=== PATIENT | female | born 1975 | race African-American/Black ===

== ENCOUNTER 2018-11-02 20:27 | Observation (INO) ==
--- OUTSIDE RECORDS SUMMARY | 2018-11-02 20:30 | External Medical Summary | Continuity of Care Document ---
:1975 Author Name Corbin Todd, Provider Address Unavailable Unavailable , Care Team Providers Name Role Phone Fe Todd, Gabriel Christie Unavailable [email or web address] Unavailable Unavailable Unavailable Unavailable Assessments Assessed Problems:Abscess in epidural space of lumbar spineMethicillin susceptible Staphylococcus aureus infectionPostoperative infection Problems Postoperative infection (998.59) (T81.40XA) Abscess in epidural space of lumbar spine (324.1) (G06.1) Methicillin susceptible Staphylococcus aureus infection (041 .11) (A49.01) Allergies and Adverse Reactions Erythromycin Derivatives (Allergy) Medications hydroCHLOROthiazide 25 MG Oral Tablet Perez Miramontes art: 11-Nov-2014 Refills: 0 metFORMIN HCl - 500 MG Oral Tablet; Take 1 tablet twice imsti y Quantity: 60 Refills: 5 Wellbutrin TABS Refills: 0 Cefadroxil 1 GM Oral Tablet; Take 1 tablet twice daily Perez Miramontes Start: 27-Nov-2014 Quantity: 60 Refills: 5 Procedures Procedures not documented Immunizations Immunizations not documented Family History Mother No pertinent family history (V49.89) (Z78.9) Status: Active Social History - Smoking Status Current some day smoker Interventions Discussion/Summarypatient with lumbar epidural abscess following spinal surgery, with methicillin sensitive staph aureus, with excellent response to IV and now prolonged oral antibiotic therapy. At this point, feel thatpatient can complete current course of antibiotics, then can discontinue, with careful follow-up for any evidence of recurrent infection. Patient advised to call immediately if any signs or symptoms ofinfection or any other questions or concerns. Plan of Treatment Planned Observations Planned Goals not documented Results No Known Results Results not documented Encounters Appointment; Gabriel Miramontes M.D. 02-Feb-2015 16:15 Encounter Diagnosis: Problem not documented
[2018-11-02] MEDS ORDERED: METOPROLOL TARTRATE 1 MG/ML VIAL IV STA ×2 (21:39→23:01)
--- NOTE | 2018-11-02 21:42 | XRay Report ---
XR chest 1V portable CLINICAL HISTORY: 43 years-old Female presenting with Chest Pain. TECHNIQUE: Portable upright AP view of the chest was obtained. COMPARISON: 10/14/2014. FINDINGS: Evaluation limited by portable technique and body habitus. Cardiomediastinal silhouette normal. No focal opacity. No large effusion or pneumothorax. Osseous str uctures normal. Upper abdomen normal. IMPRESSION: 1. No gross evidence of acute cardiopulmonary disease. Electronically signed by: Eric Hill M.D. 11/02/2018 9:41 PM
[2018-11-02 21:45] LABS: Basophils # (auto) 0.07 K/uL (0-0.2); Basophils % (auto) 0.6 %; Eosinophils # (auto) 0.22 K/uL (0-0.5); Eosinophils % (auto) 1.9 %; Hematocrit (blood only) 33.4 % (37-47); Hemoglobin 10.7 g/dL (12.0-16.0); Immature Granulocytes # (auto) 0.03 K/uL (0.00-0.02); Immature Granulocytes % (auto) 0.3 %; Lymphocytes # (auto) 4.17 K/uL (1.2-3.4); Lymphocytes % (auto) 36.6 %; Mean Corpuscular Hemoglobin 22.4 pg (25-34); Mean Corpuscular Volume 69.9 fL (80-100); Mean Platelet Volume 9.8 fL (7.4-10.4); Monocytes # (auto) 0.89 K/uL (0.11-0.59); Monocytes % (auto) 7.8 %; Neutrophils # (auto) 6.02 K/uL (1.4-6.5); Neutrophils % (auto) 52.8 %; Nucleated RBC # (auto) 0.06 K/uL (0-0); Nucleated RBC % (auto) 0.6 %; Platelet Count 340 K/uL (130-400); RDW Coefficient of Variation 17.1 % (11.5-14.5); RDW Standard Deviation 43.2 fL (36.4-46.3); Red Blood Count 4.78 M/uL (4.2-5.4)
[2018-11-02 21:49] LABS: Partial Thromboplastin Ratio 1.1; Partial Thromboplastin Time 28.6 Seconds (21.0-31.0); Prothrombin Time 9.9 Seconds (9.0-12.0)
[2018-11-02 21:55] LABS: Alanine Aminotransferase 40 U/L (12-78); Albumin Globulin Ratio 0.9 (0.9-2); Albumin Level 3.6 gm/dl (3.4-5.0); Alkaline Phosphatase 92 U/L (45-117); Aspartate Aminotransferase 42 U/L (15-37); BUN Creatinine Ratio 11.9 (10-20); Bilirubin,Total 0.2 mg/dl (0.2-1); Blood Urea Nitrogen 9 mg/dl (7-18); Calcium 9.4 mg/dl (8.5-10.1); Carbon Dioxide 25 mmol/L (21-32); Chloride 105 mmol/L (98-107); Est GFR (African American) 109.4; Est GFR (Non-African American) 94.4; Globulin 3.9 gm/dl (2.5-4.0); Glucose 104 mg/dl (70-99); Lipase 70 U/L (73-393); Potassium 3.5 mmol/L (3.5-5.1); Sodium 138 mmol/L (136-145); Total Protein 7.5 gm/dl (6.4-8.2); Troponin I < 0.015 ng/ml (0-0.045)
[2018-11-02 22:00] LABS: D Dimer 270 ug/L FEU (0-500)
--- NOTE | 2018-11-02 22:11 | Emergency Department Note ---
History of Present Illness General Chief complaint: Chest Pain Stated complaint: CHEST PAIN, BLACKED OUT History of Present Illness Maximum Pain Intensity: 8 This 43 yo presents to the ER complaining of chest pain, dyspnea, upper back pain and arm discomfort Location: Chest Quality: Pressure Severity: Moderate Duration: One day Timing: Started yesterday Context: Symptoms persisted and patient came in Modifying factors: better with nothing; worse with nothing Patient has not been taking her blood pressure medicine. She states she forgets. She does have diabetes. Patient denies exertional chest pain, abdominal pain, leg pain or swelling, recent travel. Family history is unknown. Patient does smoke. No prior heart disease. Home Medications Home Medications Medication Instructions Recorded Confirmed Type Wellbutrin SR 150 mg PO BID 11/02/18 11/02/18 History albuterol sulfate [ProAir HFA] 2 puff INHALATION QID PRN 11/02/18 11/02/18 History losartan-hydrochlorothiazide 1 tab PO DAILY 11/02/18 11/02/18 History [Hyzaar] metformin 500 mg PO BID 11/02/18 11/02/18 History naproxen sodium [Aleve] 880 mg PO DAILY PRN 11/02/18 11/02/18 History Allergies Allergy/AdvReac Type Severity Reaction Status Date / Time erythromycin base Allergy Intermediate HIVES Verified 11/02/18 22:05 Past Med/Surg History Medical History Diabetes High blood pressure Social History Feels Safe at Home: Yes Smoking Status: Current every day smoker Review of Systems All systems reviewed & are unremarkable except as noted in HPI & below Physical Exam Vital Signs Vital Signs - 24 hr 11/02/18 20:40 11/02/18 22:56 Temperature 37.7 C H Temperature Source Oral Sepsis Recent Fever Within 48 Hours No Sepsis Action Taken by Nursing No Action Required Pulse Rate 119 H Pulse Rate [Left Finger] 92 H Respiratory Rate 18 Respiratory Effort / Characteristics Non-Labored Respiratory Depth Normal Blood Pressure 217/149 H Blood Pressure [Right Arm] 187/130 H Blood Pressure Mean 171 Blood Pressure Mean [Right Arm] 149 Pulse Oximetry 97 99 Oxygen Delivery Method Room Air Room Air VITALS: Vitals are noted on the nurse's note and reviewed by myself. Vital signs hypertensive and tachycardic. GENERAL: -[place] female, in no acute distress, nondiaphoretic, well- developed well-nourished. SKIN: The skin was without rashes, erythema, edema, or bruising. There is no tenting of the skin. Capillary reflex less than 2 seconds. HEAD: Normocephalic atraumatic. EARS: External auditory canals clear, tympanic membranes pearly manuel without erythema or effusion bilaterally. EYES: Pupils equal round and reactive to light and accommodation. Conjunctivae without injection, sclerae without icterus. Extraocular movements intact. NOSE: Patent, turbinates without inflammation or discharge. MOUTH: Mucous membranes moist. Pharynx without erythema or exudate. Uvula midline. Airway patent. Tongue does not deviate. NECK: Supple without nuchal rigidity. No lymphadenopathy. No thyromegaly. Cervical spine is nontender. No JVD. HEART: Mildly tachycardic rate and rhythm, mid chest tender to palpation reproducing symptoms LUNGS: Clear to auscultation bilaterally without wheezes, rales or rhonchi. No retractions or accessory muscle use. ABDOMEN: Positive bowel sounds x 4. Normal tympanic percussion. Soft, nontender, without masses or organomegaly. Valdez sign negative. No guarding or rebound tenderness. No CVA tenderness MUSCULOSKELETAL: No muscle atrophy, erythema, or edema noted. NEURO: Patient was alert and oriented to person place and time. Normal sensation to light and sharp touch. No focal neurological deficits. Course Administered Medications Discontinued Medications Al Hydrox/Mg Hydrox/Simethicone () 1 dose PO ONE ONE Stop: 11/02/18 23:12 Last Admin: 11/02/18 23:36 Dose: 1 dose Documented by: [id number] Ioversol (Optiray 320 125ml) 119 ml IV ONCE PRN PRN Reason: Interaction Checking Stop: 11/06/18 22:45 Last Admin: 11/02/18 22:47 Dose: 119 ml Documented by: [id number] Metoprolol Tartrate (Lopressor) 5 mg IV NOW STA Stop: 11/02/18 21:40 Last Admin: 11/02/18 22:04 Dose: 5 mg Documented by: [id number] Metoprolol Tartrate (Lopressor) 5 mg IV NOW STA Stop: 11/02/18 23:02 Last Admin: 11/02/18 23:03 Dose: 5 mg Documented by: [id number] Medical Decision Making Medical Records Attestation: I reviewed the patient's medical records. Home Medications Current Medication List: was personally reviewed by me Laboratory Data Attestation: I reviewed the patient's lab results. Result diagrams: 11/02/18 20:50 11/02/18 20:50 Lab Results 11/02/18 11/02/18 11/02/18 Range/Units 20:50 20:50 20:50 WBC 11.40 H (4.8-10.8) K/uL RBC 4.78 (4.2-5.4) M/uL Hgb 10.7 L (12.0-16.0) g/dL Hct 33.4 L (37-47) % MCV 69.9 L (80-100) fL MCH 22.4 L (25-34) pg MCHC 32.0 (32-36) g/dL RDW Std Deviation 43.2 (36.4-46.3) fL RDW Coeff of Gladys 17.1 H (11.5-14.5) % Plt Count 340 (130-400) K/uL MPV 9.8 (7.4-10.4) fL Immature Gran % (Auto) 0.3 % Neut % (Auto) 52.8 % Lymph % (Auto) 36.6 % [place] % (Auto) 7.8 % Eos % (Auto) 1.9 % Baso % (Auto) 0.6 % Immature Gran # (Auto) 0.03 H (0.00-0.02) K/uL Neut # (Auto) 6.02 (1.4-6.5) K/uL Lymph # (Auto) 4.17 H (1.2-3.4) K/uL [place] # (Auto) 0.89 H (0.11-0.59) K/uL Eos # (Auto) 0.22 (0-0.5) K/uL Baso # (Auto) 0.07 (0-0.2) K/uL Absolute Nucleated RBC 0.06 H (0-0) K/uL Nucleated RBC % (auto) 0.6 % Hypochromasia Present Microcytosis Present PT 9.9 (9.0-12.0) Seconds INR 1.0 (0.9-1.1) APTT 28.6 (21.0-31.0) Seconds PTT Ratio 1.1 D-Dimer (0-500) ug/L FEU Sodium 138 (136-145) mmol/L Potassium 3.5 (3.5-5.1) mmol/L Chloride 105 (98-107) mmol/L Carbon Dioxide 25 (21-32) mmol/L Anion Gap 9.0 (3-11) BUN 9 (7-18) mg/dl Creatinine 0.78 (0.6-1.2) mg/dl Est Cr Clr Drug Dosing 156.0 ml/min Est GFR ( Amer) 109.4 Est GFR (Non-Af Amer) 94.4 BUN/Creatinine Ratio 11.9 (10-20) Glucose 104 H (70-99) mg/dl Calcium 9.4 (8.5-10.1) mg/dl Total Bilirubin 0.2 (0.2-1) mg/dl AST 42 H (15-37) U/L ALT 40 (12-78) U/L Alkaline Phosphatase 92 (45-117) U/L Troponin I < 0.015 (0-0.045) ng/ml Total Protein 7.5 (6.4-8.2) gm/dl Albumin 3.6 (3.4-5.0) gm/dl Globulin 3.9 (2.5-4.0) gm/dl Albumin/Globulin Ratio 0.9 (0.9-2) Lipase 70 L (73-393) U/L Specimen Hemolysis Urine Color Urine Appearance (Clear) Urine pH (4.5-7.5) Ur Specific [place] (1.000-1.030) Urine Protein (Negative) Urine Glucose (UA) (Negative) Urine Ketones (Negative) Urine Blood (Negative) Urine Nitrite (Negative) Urine Bilirubin (Negative) Urine Urobilinogen (Negative) Ur Leukocyte Esterase (Negative) Urine WBC (Auto) (0-5) /hpf Urine RBC (Auto) (0-4) /hpf U Hyaline Cast (Auto) (0-5) /lpf U Epithel Cells (Auto) (0-5) /lpf Urine Bacteria (Auto) (Negative) POC Ur Test (NEG) 11/02/18 11/02/18 11/02/18 Range/Units 20:50 22:10 22:10 WBC (4.8-10.8) K/uL RBC (4.2-5.4) M/uL Hgb (12.0-16.0) g/dL Hct (37-47) % MCV (80-100) fL MCH (25-34) pg MCHC (32-36) g/dL RDW Std Deviation (36.4-46.3) fL RDW Coeff of Gladys (11.5-14.5) % Plt Count (130-400) K/uL MPV (7.4-10.4) fL Immature Gran % (Auto) % Neut % (Auto) % Lymph % (Auto) % [place] % (Auto) % Eos % (Auto) % Baso % (Auto) % Immature Gran # (Auto) (0.00-0.02) K/uL Neut # (Auto) (1.4-6.5) K/uL Lymph # (Auto) (1.2-3.4) K/uL [place] # (Auto) (0.11-0.59) K/uL Eos # (Auto) (0-0.5) K/uL Baso # (Auto) (0-0.2) K/uL Absolute Nucleated RBC (0-0) K/uL Nucleated RBC % (auto) % Hypochromasia Microcytosis PT (9.0-12.0) Seconds INR (0.9-1.1) APTT (21.0-31.0) Seconds PTT Ratio D-Dimer 270 (0-500) ug/L FEU Sodium (136-145) mmol/L Potassium (3.5-5.1) mmol/L Chloride (98-107) mmol/L Carbon Dioxide (21-32) mmol/L Anion Gap (3-11) BUN (7-18) mg/dl Creatinine (0.6-1.2) mg/dl Est Cr Clr Drug Dosing ml/min Est GFR ( Amer) Est GFR (Non-Af Amer) BUN/Creatinine Ratio (10-20) Glucose (70-99) mg/dl Calcium (8.5-10.1) mg/dl Total Bilirubin (0.2-1) mg/dl AST (15-37) U/L ALT (12-78) U/L Alkaline Phosphatase (45-117) U/L Troponin I (0-0.045) ng/ml Total Protein (6.4-8.2) gm/dl Albumin (3.4-5.0) gm/dl Globulin (2.5-4.0) gm/dl Albumin/Globulin Ratio (0.9-2) Lipase (73-393) U/L Specimen Hemolysis Urine Color Yellow Urine Appearance Clear (Clear) Urine pH 7.5 (4.5-7.5) Ur Specific [place] 1.010 (1.000-1.030) Urine Protein Negative (Negative) Urine Glucose (UA) Negative (Negative) Urine Ketones Negative (Negative) Urine Blood Negative (Negative) Urine Nitrite Negative (Negative) Urine Bilirubin Negative (Negative) Urine Urobilinogen Negative (Negative) Ur Leukocyte Esterase Trace H (Negative) Urine WBC (Auto) 1-5 (0-5) /hpf Urine RBC (Auto) 0-4 (0-4) /hpf U Hyaline Cast (Auto) 0 (0-5) /lpf U Epithel Cells (Auto) >30 H (0-5) /lpf Urine Bacteria (Auto) 3+ H (Negative) POC Ur Test NEG (NEG) Imaging Data Attestation: I personally reviewed and interpreted this imaging study as follows: MDM Narrative Prior records/ancillary studies reviewed. Triage Nursing notes reviewed. Additional history obtained from family. The patient's history was concerning for chest pain. Differential diagnosis: Etiologies such as cardiac ischemia, aortic dissection, pulmonary embolism, pneumonia, pneumothorax, musculoskeletal, infections, pericarditis, myocarditis, esophageal rupture, gastrointestinal, as well as others were entertained. Physical examination: As above. ER treatment provided: Lopressor On reassessment the patient felt better. Diagnostic interpretation by me: The electrocardiogram was negative for pathologic change. Normal sinus, normal intervals, poor baseline, no acute ST-T wave changes. Impression sinus tachycardia interpreted by myself Ordered for chest pain I think arrhythmia is unlikely. EKG shows normal sinus rhythm with no interval abnormalities such as QT prolongation or WPW. There are no findings to suggest Brugada syndrome. Cardiac monitoring in the emergency department reveals no tachycardic or bradycardic dysrhythmia. Hypertrophic cardiomyopathy was con sidered but there are no clear historical elements pointing toward this. EKG is not suggestive. The QRS voltage is not extremely large and there are no suggestive Q waves. The labs revealed leukocytosis, anemia, negative troponin Imaging studies: XR chest 1V portable CLINICAL HISTORY: 43 years-old Female presenting with Chest Pain. TECHNIQUE: Portable upright AP view of the chest was obtained. COMPARISON: 10/14/2014. FINDINGS: Evaluation limited by portable technique and body habitus. Cardiomediastinal silhouette normal. No focal opacity. No large effusion or pneumothorax. Osseous structures normal. Upper abdomen normal. IMPRESSION: 1. No gross evidence of acute cardiopulmonary disease. Electronically signed by: Eric Hill M.D. 11/02/2018 9:41 PM Dictated: 11/02/182139 Transcribed: 11/02/182139 Patient: EMILEE MENA Admit Date: 11/02/18 MR#: [id number] Address1: [address] [place] [address] Acct ID:[id number] Address2: Date: 1975 [facility] Zip: [place] [address] Age: 43 Location: ED Sex: F Room/Bed: Att Phy: Diagnosis: CHEST PAIN, BLACKED OUT Mackenzie Phy: PCP,NO Service Date: 11/02/18 Fam Phy: Interpreting Phy: Eric Hill MD Admit Phy: Ordering Phy: Carline Watkins PA-C cc: ~ CT angio chest dissec wo/w con CLINICAL HISTORY: 43 years-old Female presenting with atypical chest pain radiating to the back, former smoker, concern for dissection. TECHNIQUE: Multidetector CT angiography of the chest was performed before and a fter the administration of intravenous contrast. 3-D volumetric and/or maximum intensity projection (MIP) images were subsequently reconstructed for review. IV contrast: 119 mL of Optiray 320. One or more dose lowering techniques were used consistent with the principles of ALARA (as low as reasonably achievable), including automatic exposure control, mA or kV adjustment to individual patient size, and/or use of iterative reconstruction. COMPARISON: None. CT DOSE (mGy.cm): The estimated cumulative dose is 3034.33 mGy.cm. FINDINGS: Infrastructure Software Engineer topogram: Unremarkable. Vasculature: The study is adequate for assessment of the aorta. Precontrast imaging demonstrates no evidence of intramural hematoma. Postcontrast imaging demonstrates no evidence of dissection, penetrating ulcer, or aneurysm. Allowing for timing of the contrast bolus, no gross evidence of a filling defect within the pulmonary arteries to suggest embolus. Main pulmonary artery is not enlarged. No flattening of the interventricular septum. No intracardiac filling defect. No reflux of contrast into the hepatic veins. Remaining chest: Soft tissues: Normal thyroid and thoracic inlet. No axillary, supraclavicular, mediastinal, or hilar lymphadenopathy. Top normal heart size. No pericardial or pleural effusion. Upper abdomen normal. Lungs and airways: No pneumothorax. Central airways patent. Pulmonary arteries are not significantly enlarged relative to adjacent bronchi. No interlobular septal thickening. 9 mm solid subpleural nodule in the lateral basal right lower lobe (series 9 image 185). Solid adjacent peripheral 4 mm nodule (series 9 image 181). Minimal bibasilar dependent changes likely atelectasis. Mild mosaic attenuation. Musculoskeletal: Degenerative changes of the spine. IMPRESSION: 1. No evidence of acute aortic injury. No acute intrathoracic pathology. 2. Two adjacent solid pulmonary nodules the larger measuring 9 mm. Follow-up per Fleischner Society 2017 recommendations below. Summary of Fleischner Society 2017 Recommendations (H Eduarda et al. Guidelines for management of incidental pulmonary nodules detected on CT images: From the Fleischner Society 2017. Radiology 2017; 284: 228-243.) SOLID NODULES Single nodule; size < 6 mm * Low risk patients: No routine follow-up * High risk patients: Optional CT at 12 months Single nodule; size 6-8 mm * Low risk patients: CT at 6-12 months, then consider CT at 18-24 months * High risk patients: CT at 6-12 months, then at 18-24 months Single nodule; size > 8 mm * Either low or high risk patients: Considered CT at 3 months, PET/CT, or tissue sampling Multiple nodules; size < 6 mm * Low risk patients: No routine follow up * High risk patients: Optional CT at 12 months Multiple nodules; size 6-8 mm * Low risk patients: CT at 3-6 months, then consider CT at 18-24 months * High risk patients: CT at 3-6 months, then at 18-24 months Multiple nodules; size > 8 mm * Low risk patients: CT at 3-6 months, then consider at 18-24 months * High risk patients: CT at 3-6 months, then at 18-24 months SUBSOLID NODULES Single ground-glass nodule * Nodule size < 6 mm: No routine follow-up * Nodule size > or = 6 mm: CT at 6-12 months to confirm persistence, then CT every 2 years until 5 years Single part-solid nodule * Nodule size < 6 mm: No routine follow-up * Nodules size > or = 6 mm: CT at 3-6 months to confirm persistence. If unchanged and solid component remains < 6 mm, annual CT should be performed for 5 years Multiple nodules * Nodule size < 6 mm: CT at 3-6 months. If stable, consider CT at 2 and 4 years. * Nodules size > or = 6 mm: CT at 3-6 months. Subsequent management based on the most suspicious nodule(s) NOTE: 1) These guidelines apply to incidental nodules. These guidelines do NOT apply to patients younger than 35 years, immunocompromised patients, or patients with cancer. 2) Risk categories: * Low risk patients: Minimal or absent history of smoking and/or other known risk factors * High risk patients: History of smoking, exposure to other carcinogens, emphysema, fibrosis, upper lobe location, family history of lung cancer, etc. 3) If a nodule up to 8 mm is partly solid or is ground glass, further follow-up is required after 24 months to exclude possible slow growing adenocarcinoma. Electronically signed by: Eric Hill M.D. 11/02/2018 10:57 PM Dictated: 11/02/182250 Transcribed: 11/02/182250 CT head/brain wo con CLINICAL HISTORY: 43 years-old Female presenting with Orta, dizzy, HTN. TECHNIQUE: Multidetector CT imaging of the head was performed without the use of intravenous contrast. IV contrast: None. One or more dose lowering techniques were used consistent with the principles of ALARA (as low as reasonably achievable), including automatic exposure control, mA or kV adjustment to individual patient size, and/or use of iterative reconstruction. COMPARISON: None. CT DOSE (mGy.cm): The estimated cumulative dose is 3034.33. FINDINGS: Infrastructure Software Engineer topogram: Unremarkable. Ventricles and sulci normal in size. No hemorrhage. Brain parenchyma normal in appearance with preserved manuel-white differentiation. No acute territorial infarct. No mass effect or midline shift. No extra-axial fluid collection. Paranasal sinuses and mastoid air cells clear. Calvarium intact. IMPRESSION: 1. No acute intracranial abnormality. Electronically signed by: Eric Hill M.D. HEART SCORE: Hx: high/mod/low suspicion: 1 ECG: ST depression/nonspecific changes/normal: 0 Age: Greater than 65/45-64/less than 45: 0 Risk factors: (Hypertension, hyperlipidemia, diabetes, coronary disease, tobacco use, cocaine use): 2 Troponin: Greater than 2 times normal limits/1-2 times normal limits/normal: 0 Total: 3 Consultation: A consultation was placed with the hospitalist, Dr Jimenez. The case was discussed and diagnostics were reviewed. The patient was evaluated in the ER for further treatment. Exam and history seem consistent with hypertensive urgency and chest pain. First troponin was negative. Patient was given a few rounds of blood pressure medicine and the blood pressure still quite high. Medicine was consulted. Patient is agreeable to treatment plan. By the evaluation outlined above emergent etiologies such as aortic dissection, pulmonary embolism, pneumonia, pneumothorax, infections, pericarditis, myocarditis, gastrointestinal, as well as others were deemed relatively unlikely. The pt informed about the findings as listed above. All questions were answered and pleased with the treatment. Case reviewed with my attending The chart was completed utilizing [employer] Speech voice recognition software. Grammatical errors, random word insertions, pronoun errors, and incomplete sentences are an occassional consequence of this system due to software limitations, ambient noise, and hardware issues. Any formal questions or concerns about the content, text, or information contained within the body of this dictation should be directly addressed to the physician human services assistant for clarification. Impression & Plan Atypical chest pain, Hypertensive urgency, Lung nodule Discharge Plan Visit Data Chief Complaint: Chest Pain Stated Complaint: CHEST PAIN, BLACKED OUT ED Provider: Donte Cannon ED Midlevel Provider: Carline Watkins Discharge Problem: Atypical chest pain, Hypertensive urgency, Lung nodule Patient Disposition: Being Evaluated by Hospitalist Condition: Good Discharge Instructions Interventions: ED Discharge Assessment Last Done: 11/03/18 00:07
[2018-11-02 22:16] LABS: Hypochromasia Present; Microcytosis Present
[2018-11-02 22:20] LABS: Appearance Urine Clear (Clear); Bacteria Urine Automated 3+ (Negative); Bilirubin Urine Negative (Negative); Blood Urine Negative (Negative); Cast Urine Automated 0 /lpf (0-5); Color Urine Yellow; Epithelial Cell Urine Auto >30 /lpf (0-5); Glucose Urine UA Negative (Negative); Ketones Urine Negative (Negative); Leukocyte Esterase Urine Trace (Negative); Nitrite Urine Negative (Negative); Protein Urine Negative (Negative); RBC Urine Automated 0-4 /hpf (0-4); Urobilinogen Urine Negative (Negative); pH Urine 7.5 (4.5-7.5)
[2018-11-02] MEDS ORDERED: OPTIRAY 320 125ml IV PRN (22:46)
--- NOTE | 2018-11-02 22:52 | CT Scan Report ---
CT head/brain wo con CLINICAL HISTORY: 43 years-old Female presenting with Orta, dizzy, HTN. TECHNIQUE: Multidetector CT imaging of the head was performed without the use of intravenous contrast . IV contrast: None. One or more dose lowering techniques were used consistent with the principles of ALARA (as low as reasonably achievable), including automatic exposure control, mA or kV adjustment t o individual patient size, and/or use of iterative reconstruction. COMPARISON: None. CT DOSE (mGy.cm): The estimated cumulative dose is 3034.33. FINDINGS: Flanging Operator topogram: Unremarkable. Ventricles and sulci normal in size. No hemorrhage. Brain parenchyma normal in appearance with preser carmine manuel-white differentiation. No acute territorial infarct. No mass effect or midline shift. No ext ra-axial fluid collection. Paranasal sinuses and mastoid air cells clear. Calvarium intact. IMPRESSION: 1. No acute intracranial abnormality. Electronically signed by: Eric Hill M.D. 11/02/2018 10:51 PM
--- NOTE | 2018-11-02 22:58 | CT Scan Report ---
CT angio chest dissec wo/w con CLINICAL HISTORY: 43 years-old Female presenting with atypical chest pain radiating to the back, form er smoker, concern for dissection. TECHNIQUE: Multidetector CT angiography of the chest was performed before and after the administratio n of intravenous contrast. 3-D volumetric and/or maximum intensity projection (MIP) images were subse quently reconstructed for review. IV contrast: 119 mL of Optiray 320. One or more dose lowering techn iques were used consistent with the principles of ALARA (as low as reasonably achievable), including automatic exposure control, mA or kV adjustment to individual patient size, and/or use of iterative r econstruction. COMPARISON: None. CT DOSE (mGy.cm): The estimated cumulative dose is 3034.33 mGy.cm. FINDINGS: Fruit Raiser topogram: Unremarkable. Vasculature: The study is adequate for assessment of the aorta. Precontrast imaging demonstrates no evidence of in tramural hematoma. Postcontrast imaging demonstrates no evidence of dissection, penetrating ulcer, or aneurysm. Allowing for timing of the contrast bolus, no gross evidence of a filling defect within th e pulmonary arteries to suggest embolus. Main pulmonary artery is not enlarged. No flattening of the interventricular septum. No intracardiac filling defect. No reflux of contrast into the hepatic veins . Remaining chest: Soft tissues: Normal thyroid and thoracic inlet. No axillary, supraclavicular, mediastinal, or hilar lymphadenopathy. Top normal heart size. No pericardial or pleural effusion. Upper abdomen normal. Lungs and airways: No pneumothorax. Central airways patent. Pulmonary arteries are not significantly enlarged relative to adjacent bronchi. No interlobular septal thickening. 9 mm solid subpleural nodul e in the lateral basal right lower lobe (series 9 image 185). Solid adjacent peripheral 4 mm nodule ( series 9 image 181). Minimal bibasilar dependent changes likely atelectasis. Mild mosaic attenuation. Musculoskeletal: Degenerative changes of the spine. IMPRESSION: 1. No evidence of acute aortic injury. No acute intrathoracic pathology. 2. Two adjacent solid pulmonary nodules the larger measuring 9 mm. Follow-up per Fleischner Society 2017 recommendations below. Summary of Fleischner Society 2017 Recommendations (H Eduarda et al. Guidelines for management of i ncidental pulmonary nodules detected on CT images: From the Fleischner Society 2017. Radiology 2017; 284: 228-243.) SOLID NODULES Single nodule; size < 6 mm * Low risk patients: No routine follow-up * High risk patients: Optional CT at 12 months Single nodule; size 6-8 mm * Low risk patients: CT at 6-12 months, then consider CT at 18-24 months * High risk patients: CT at 6-12 months, then at 18-24 months Single nodule; size > 8 mm * Either low or high risk patients: Considered CT at 3 months, PET/CT, or tissue sampling Multiple nodules; size < 6 mm * Low risk patients: No routine follow up * High risk patients: Optional CT at 12 months Multiple nodules; size 6-8 mm * Low risk patients: CT at 3-6 months, then consider CT at 18-24 months * High risk patients: CT at 3-6 months, then at 18-24 months Multiple nodules; size > 8 mm * Low risk patients: CT at 3-6 months, then consider at 18-24 months * High risk patients: CT at 3-6 months, then at 18-24 months SUBSOLID NODULES Single ground-glass nodule * Nodule size < 6 mm: No routine follow-up * Nodule size > or = 6 mm: CT at 6-12 months to confirm persistence, then CT every 2 years until 5 y ears Single part-solid nodule * Nodule size < 6 mm: No routine follow-up * Nodules size > or = 6 mm: CT at 3-6 months to confirm persistence. If unchanged and solid componen t remains < 6 mm, annual CT should be performed for 5 years Multiple nodules * Nodule size < 6 mm: CT at 3-6 months. If stable, consider CT at 2 and 4 years. * Nodules size > or = 6 mm: CT at 3-6 months. Subsequent management based on the most suspicious nod ule(s) NOTE: 1) These guidelines apply to incidental nodules. These guidelines do NOT apply to patients younger th an 35 years, immunocompromised patients, or patients with cancer. 2) Risk categories: * Low risk patients: Minimal or absent history of smoking and/or other known risk factors * High risk patients: History of smoking, exposure to other carcinogens, emphysema, fibrosis, upper lobe location, family history of lung cancer, etc. 3) If a nodule up to 8 mm is partly solid or is ground glass, further follow-up is required after 24 months to exclude possible slow growing adenocarcinoma. Electronically signed by: Eric Hill M.D. 11/02/2018 10:57 PM
[2018-11-02] MEDS ORDERED: GI COCKTAIL ED USE PO ONE (23:11)
[2018-11-02] MEDS ORDERED: LOSARTAN/HCTZ 50/12.5MG TAB PO STA (23:50)
[2018-11-03] MEDS ORDERED: NITROGLYCERIN SL 0.4 MG/TAB TAB SL PRN (00:20)
[2018-11-03] MEDS ORDERED: ONDANSETRON INJ 2 MG/ML 2 ML VIAL IV PRN (00:20)
[2018-11-03] MEDS ORDERED: METOPROLOL TARTRATE 1 MG/ML VIAL IV PRN (00:20)
[2018-11-03] MEDS ORDERED: POLYETHYLENE (MIRALAX) 17 GM PACK PO PRN (00:20)
[2018-11-03] MEDS ORDERED: ALBUTEROL HFA 8 GM INHALER INH PRN (00:20)
--- NOTE | 2018-11-03 01:13 | History and Physical Report ---
DATE OF ADMISSION: 11/02/2018 CHIEF COMPLAINT: Chest pain. HISTORY OF PRESENT ILLNESS: This is a 43-year-old female with past medical history significant for gastroesophageal reflux disease, hypertension, obesity, allergic rhinitis, degenerative disc disease, chronic bilateral thoracic back pain, status post bilateral breast reduction who presents with chest pain. The patient started having chest pain in the middle of the chest radiating to her arms and back since yesterday with a pressure-like feeling, [id number] in nature. It was not associated with any activity. It was constant pain. She has some dizziness. Denies any headache. No nausea. No vomiting. No sweating. No shortness of breath. No cough. No fever. No abdominal pain. No diarrhea. No constipation. No black stools or blood in the stools. No hematuria or burning micturition. No dysphagia. No blurred vision. No earache. No runny nose. No sore throat. The patient is noncompliant with her medications. She states she stopped taking her blood pressure medication since she forgotten to take and then she stopped taking it. Her blood pressure was high in the Emergency Room. Received I.V. Lopressor. She still has some chest pain about 6/10 in severity. Otherwise, she is resting comfortably. ALLERGIES: ERYTHROMYCIN BASED AND LISINOPRIL. PAST MEDICAL HISTORY: As mentioned above. PAST SURGICAL HISTORY: Colposcopy of the cervix with loop, lumbar decompression surgery and bilateral breast reduction surgery. MEDICATIONS: The patient is on metformin 500 mg p.o. b.i.d., Wellbutrin-SR 150 mg p.o. b.i.d., but stopped taking it, want to restart taking it, albuterol 2 puffs 4 times a day as directed, Hyzaar 100/25 mg p.o. daily and Flonase 2 sprays in each nostril daily. FAMILY HISTORY: Significant for father had a history of autoimmune disease, fibromyalgia, hypertension and lupus. Maternal cousin has breast cancer. Maternal aunt has ovarian cancer. SOCIAL HISTORY: , smokes average a half to one pack a day for last 20 years. Alcohol occasional. No drug use. REVIEW OF SYMPTOMS: As per HPI. Rest of review of systems negative. PHYSICAL EXAMINATION: GENERAL: The patient is alert and oriented, morbidly obese. VITAL SIGNS: Temperature 37.7, pulse 92, respiratory rate 18, blood pressure when she came in was 217/144 and oxygen 99% on room air. HEENT: No pallor. No icterus. Pupils are equal, round and reactive to light. NECK: No JVD. No neck masses. No carotid bruits. CARDIOVASCULAR: S1, S2 heard. Regular rate and rhythm. No murmur. No gallop. RESPIRATORY SYSTEM: Normal AP diameter. No thyromegaly. No wheezing. No crackles. ABDOMEN: Soft. Bowel sounds present. Nontender. No distention. CENTRAL NERVOUS SYSTEM: Cranial nerves II through XII grossly intact. Nonfocal. EXTREMITIES: No edema. No erythema. LABORATORY DATA: WBC 11.4, hemoglobin 10.7, hematocrit 33.4 and platelets 340. PT 9.9. INR 1. APTT 28.6. D-dimer 270. Sodium 138, potassium 3.4, chloride 105, bicarbonate 25, BUN 9, creatinine 0.7, serum glucose 104, calcium 9.4, total bilirubin 0.2, AST 42, ALT 40 and alkaline phosphatase 92. Troponin I less than 0.015. Lipase 70. Urinalysis negative. IMAGING: CTA of the chest, no evidence of acute aortic injury. No acute intrathoracic pathology, pulmonary nodules, the largest measuring [address] of the head, no acute intracranial abnormality. Chest x-ray, no acute cardiopulmonary disease. EKG Sinus tachycardia with rate of 119. No acute st changes seen. ASSESSMENT AND PLAN: This patient is a 43-year-old female, noncompliant with her medications who comes in with chest pain and was found to have hypertensive urgency. 1. Chest pain, rule out acute coronary syndrome, risk factor for hypertension, obesity and smoking. Initial workup is negative. Follow serial cardiac enzymes, repeat electrocardiogram, echocardiogram, consult cardiology . Npo until seen by cardiology Monitor on tele floor. 2. Hypertensive urgency, noncompliant with medication, forgot to take medication and then she stopped taking it. we will place her on nitro paste 1 inch q. 6 hours and give her home dose now of Hyzaar and continue home dose from a.m. and also place on I.V. Lopressor p.r.n. and closely monitor the blood pressure. 3. Microcytic anemia. Hemoglobin 10.7. MCV 69. We will follow the iron studies, vitamin B12, folate levels and stool for Hemoccult and monitor the laboratories 4. Lung nodules, history of smoking. Needs close followup with CAT scan in 3 months. 5.Prediabetes. ADA diet when diet started. follow hba1c levels. On metformin which will be held. 6. Obesity . Needs counseling. Sleep study as out patient. 7.Tobacco abuse. needs counselling.Stopped taking Wellbutrin but says she is going to start taking it again. 8. Deep venous thrombosis prophylaxis, sequential compression devices for now. 9. Disposition: Closely monitor and observation on tele floor. Level 1 full code. MTDD
[2018-11-03] MEDS: NITROGLYCERIN 2% OINTMENT 30GM TUBE EXT SCH ×2 (01:42→05:33)
[2018-11-03] MEDS: ACETAMINOPHEN 325 MG TAB PO PRN ×2 (05:26→11:26)
[2018-11-03 07:03] LABS: Basophils # (auto) 0.04 K/uL (0-0.2); Basophils % (auto) 0.5 %; Eosinophils # (auto) 0.17 K/uL (0-0.5); Hematocrit (blood only) 31.7 % (37-47); Hemoglobin 9.9 g/dL (12.0-16.0); Immature Granulocytes # (auto) 0.02 K/uL (0.00-0.02); Immature Granulocytes % (auto) 0.2 %; Lymphocytes # (auto) 2.94 K/uL (1.2-3.4); Lymphocytes % (auto) 34.1 %; Mean Corpuscular Hemoglobin 21.8 pg (25-34); Mean Corpuscular Hgb Conc 31.2 g/dL (32-36); Mean Corpuscular Volume 69.7 fL (80-100); Monocytes # (auto) 0.78 K/uL (0.11-0.59); Neutrophils # (auto) 4.67 K/uL (1.4-6.5); Neutrophils % (auto) 54.2 %; Platelet Count 295 K/uL (130-400); RDW Coefficient of Variation 17.4 % (11.5-14.5); RDW Standard Deviation 43.8 fL (36.4-46.3); Red Blood Count 4.55 M/uL (4.2-5.4); White Blood Count 8.62 K/uL (4.8-10.8)
[2018-11-03] MEDS ORDERED: PERFLUTREN LIPID MICROSPHERE (DEFINITY) IV ONE (07:24)
[2018-11-03 07:32] LABS: Microcytosis Present
[2018-11-03 07:37] LABS: Creatinine Clr Calc Pharmacy 169.1 ml/min; Est GFR (African American) 124.7; Est GFR (Non-African American) 107.6; Potassium 3.5 mmol/L (3.5-5.1)
[2018-11-03 07:42] LABS: Ferritin 6.2 ng/ml (8-388)
[2018-11-03 08:59] LABS: Estimated Average Glucose 128 mg/dl; Hemoglobin A1C 6.1 % (4.5-5.6)
[2018-11-03] MEDS ORDERED: BuPROPion SR 150 MG TABCR PO SCH (09:00)
--- NOTE | 2018-11-03 11:10 | Cardiology Consultation ---
Date of Consultation November 03, 2018 Assessment & Plan (1) Atypical chest pain: Presenting EKG on 11/02/2018 revealed sinus tachycardia 119 bpm, no significant ST changes. Follow-up tracing this morning 11/03/2018 reveals normal sinus rhythm at 81 bpm, no significant repolarization changes. An age-indeterminate anterior infarction cannot be excluded based on poor R wave progression in leads V2 and V3 but this is likely due to body habitus. Resting echocardiogram revealed normal wall motion and normal LVEF. Serial cardiac enzymes have been negative. (2) Hypertensive urgency: Blood pressure trending toward improvement with most recent reading of 154/103. Prior to hospital dose of losartan/HCTZ 100/25 mg will be reinitiated. Will start with 50 mg losartan 25 mg HCTZ for now. Patient is eager for discharge. Her symptoms could very well be due to hypertensive urgency, and at this time, given EKG and cardiac enzyme findings, I do not see any evidence of an acute coronary syndrome. Pierre proceeding with a stress test for further risk stratification. Given her body habitus, technically challenging ultrasound images, a dobutamine stress echocardiogram would likely be the best noninvasive risk stratification test for her, but I would wait until her blood pressure is optimized. (3) Lung nodule: History of Present Illness Attending Physician: Hernandez Guzman MD History of Present Illness Elizabet Burdick is a 43 year old female seen in cardiology consultation per the request of Dr Jimenez for the evaluation of chest discomfort and hypertension. The patient's primary care provider is Dr. Smith of [facility]. She does not follow with cardiology on an outpatient basis. Patient presented to the emergency room yesterday complaining of the pain in the middle of her chest and radiated to her arms but is been present since the day before. The patient's blood pressure on presentation to the emergency room yesterday 11/02/2018 at 2040 was 217/149. Per review of her chart, she is prescribed losartan/HCTZ 100/25 mg daily, but she has not taken this recently. When I asked her how long she has not been taking her blood pressure medication she told me "for a long time ". She is not able to give me more specific answer. During my assessment of the patient she had no chest discomfort. She had complained of headache, and her topical nitroglycerin which had been placed in the emergency room had recently been removed, and her breakfast tray was on the way. She denies family history of heart disease. Patient has a personal history of obesity with weight of 302 pounds, most recent BMI as an outpatient 38.8, impaired glucose tolerance, and hypertension. She has past surgical history of lumbar decompression surgery with postoperative infection. And also has a history of bilateral breast reduction surgery. She is a current everyday smoker. Allergies Allergy/AdvReac Type Severity Reaction Status Date / Time erythromycin base Allergy Intermediate HIVES Verified 11/02/18 22:05 Home Medications Home Medications Medication Instructions Recorded Confirmed Type Wellbutrin SR 150 mg PO BID 11/02/18 11/02/18 History albuterol sulfate [ProAir HFA] 2 puff INHALATION QID PRN 11/02/18 11/02/18 History losartan-hydrochlorothiazide 1 tab PO DAILY 11/02/18 11/02/18 History [Hyzaar] metformin 500 mg PO BID 11/02/18 11/02/18 History naproxen sodium [Aleve] 880 mg PO DAILY PRN 11/02/18 11/02/18 History Patient History Medical History Diabetes High blood pressure Social History Preferred Language: Japanese Communication Ability: Effective Piano Stringer Required: No Beliefs That Will Affect Care: None Current Living Situation: Spouse Other Information That Helps Us Care for You: No Feels Safe at Home: Yes Safety Concerns: Feels Safe At This Time Smoking Status: Current every day smoker Tobacco Type: cigarettes ; Cigarettes Per Day: 20 ; Second Hand Exposure: No ; Tobacco Cessation Education Requested by Patient: No Hx Alcohol Use: Yes Hx Substance Use: No Review of Systems Review of Systems: All systems reviewed & are unremarkable except as noted in HPI & below Physical Exam Physical Exam: Temp Pulse Resp BP Pulse Ox 36.8 C 77 20 154/103 H 99 11/03/18 07:31 11/03/18 07:31 11/03/18 07:31 11/03/18 07:31 11/03/18 07:31 Constitutional: WD/WN, vitals as above Respiratory: normal respiratory effort, lungs clear to auscultation Cardiovascular: RRR, no murmur, no edema Gastrointestinal (Abdomen): normal bowel sounds, soft, nontender, no hepat osplenomegaly Neurologic: PERRL, EOMI, accommodation nl, no face palsy, no dysarthria Results & Data Vital Signs (Past 12 Hours) Vital Signs Temp Pulse Pulse Resp BP BP Pulse Ox 11/03/18 07:31 36.8 C 77 20 154/103 H 99 11/03/18 03:37 36.8 C 108 H 18 145/94 H 98 11/03/18 01:50 86 11/03/18 00:20 36.8 C 91 H 20 154/108 H 99 11/03/18 00:07 100 11/03/18 00:00 81 178/121 H 100 Laboratory Results Cardiac Enzymes 11/02/18 11/03/18 11/03/18 Range/Units 20:50 00:28 06:42 AST 42 H (15-37) U/L Troponin I < 0.015 < 0.015 < 0.015 (0-0.045) ng/ml Coagulation 11/02/18 Range/Units 20:50 PT 9.9 (9.0-12.0) Seconds APTT 28.6 (21.0-31.0) Seconds Lipids 11/03/18 Range/Units 06:42 Triglycerides 109 (0-150) mg/dl Cholesterol 145 (0-200) mg/dl HDL Cholesterol 45 mg/dl Cholesterol/HDL Ratio 3 CBC 11/02/18 11/03/18 Range/Units 20:50 06:42 WBC 11.40 H 8.62 (4.8-10.8) K/uL RBC 4.78 4.55 (4.2-5.4) M/uL Hgb 10.7 L 9.9 L (12.0-16.0) g/dL Hct 33.4 L 31.7 L (37-47) % Plt Count 340 295 (130-400) K/uL Neut # (Auto) 6.02 4.67 (1.4-6.5) K/uL Lymph # (Auto) 4.17 H 2.94 (1.2-3.4) K/uL Brooke # (Auto) 0.89 H 0.78 H (0.11-0.59) K/uL Eos # (Auto) 0.22 0.17 (0-0.5) K/uL Baso # (Auto) 0.07 0.04 (0-0.2) K/uL Comprehensive Metabolic Panel 11/02/18 11/03/18 Range/Units 20:50 06:42 Sodium 138 140 (136-145) mmol/L Potassium 3.5 3.5 (3.5-5.1) mmol/L Chloride 105 106 (98-107) mmol/L Carbon Dioxide 25 29 (21-32) mmol/L BUN 9 9 (7-18) mg/dl Creatinine 0.78 0.70 (0.6-1.2) mg/dl Glucose 104 H 86 (70-99) mg/dl Calcium 9.4 9.0 (8.5-10.1) mg/dl AST 42 H (15-37) U/L ALT 40 (12-78) U/L Alkaline Phosphatase 92 (45-117) U/L Total Protein 7.5 (6.4-8.2) gm/dl Albumin 3.6 (3.4-5.0) gm/dl Intake and Output 11/02/18 11/03/18 11/03/18 22:59 06:59 14:59 Other: Weight 143.8 kg 135.9 kg 136.6 kg Patient Weight 11/04/18 06:59 Weight 136.6 kg
--- NOTE | 2018-11-03 11:57 | Hospitalist Progress Note ---
Date of Service November 03, 2018 Assessment & Plan (1) Hypertensive urgency: She has been taking her blood pressure medications She presented with a very high blood pressure associated with chest pain Her medication has been restarted and the blood pressure is trending down Complaint of some headache likely secondary Nitropaste Denies any symptoms during my second visit to have this morning She wants to go home Present on Admission?: Yes (2) Atypical chest pain: Presented with precordial chest pain without any other associated symptoms Serial troponins have been negative with negative EKG Echo of the heart-poor study due to patient characteristics of poor acoustic window, LV wall motion is normal, EF 55 to 60%, grade 1 diastolic dysfunction and no significant valvular disease Appreciate cardiology input and recommendation We will have outpatient stress echo Present on Admission?: Yes (3) Lung nodule: Noted to have a small nodule of 9 mm subpleural in the lateral basal right lower lobe. She has history of smoking Repeat CT should be followed up within 3 months Prediabetes Can start metformin from Monday She wants to go home Discussed with injury/safety hazard assessment We will schedule for an outpatient stress echo She is strongly advised to continue her blood pressure medications and avoid smoking Subjective 11/03 The patient was seen and examined in telemetry unit in presence of the She was admitted with chest pain and noted to have very high blood pressure at presentation She was not taking her blood pressure medications for a while She denies any more chest pain but complains of headache likely secondary to Nitropaste She wants to go home Review of Systems Review of Systems: All systems reviewed and are unremarkable except as noted below Constitutional: + fatigue Respiratory: no cough and no dyspnea Cardiovascular: no chest pain Neurologic: + headache(s) (Likely secondary to nitro) Physical Exam Physical Exam: Lying in bed without any distress but looks anxious Constitutional: well developed, well nourished, + ill appearing and + obese; no acute distress Eyes: PERRL, conjunctivae normal, anicteric sclerae ENMT: external ear and nose normal, oropharynx normal Neck: trachea midline, no thyromegaly Respiratory: normal respiratory effort; no respiratory distress Auscultation: lungs clear to auscultation bilaterally Cardiovascular: Rate/Rhythm: regular rate and regular rhythm Heart Sounds: no murmur Gastrointestinal (Abdomen): Inspection/Auscultation: abdomen normal to inspection Percussion/Palpation: abdomen soft Musculoskeletal: No acute arthritis in any joints Neurologic: moves all extremities and + focal motor deficit Psychiatric: A+Ox3, euthymic affect Lymphatic: no cervical or axillary lymphadenopathy Results & Data Vital Signs (Past 12 Hours) Vital Signs Temp Pulse Pulse Resp BP BP Pulse Ox 11/03/18 07:31 36.8 C 77 20 154/103 H 99 11/03/18 03:37 36.8 C 108 H 18 145/94 H 98 11/03/18 01:50 86 11/03/18 00:20 36.8 C 91 H 20 154/108 H 99 11/03/18 00:07 100 11/03/18 00:00 81 178/121 H 100 Laboratory Results Short CBC 11/02/18 11/03/18 Range/Units 20:50 06:42 WBC 11.40 H 8.62 (4.8-10.8) K/uL Hgb 10.7 L 9.9 L (12.0-16.0) g/dL Hct 33.4 L 31.7 L (37-47) % Plt Count 340 295 (130-400) K/uL BMP 11/02/18 11/03/18 20:50 06:42 Sodium 138 140 Potassium 3.5 3.5 Chloride 105 106 Carbon Dioxide 25 29 BUN 9 9 Creatinine 0.78 0.70 Glucose 104 H 86 Calcium 9.4 9.0 Cardiac Enzymes 11/02/18 11/03/18 11/03/18 Range/Units 20:50 00:28 06:42 Troponin I < 0.015 < 0.015 < 0.015 (0-0.045) ng/ml Liver Function 11/02/18 Range/Units 20:50 Total Bilirubin 0.2 (0.2-1) mg/dl AST 42 H (15-37) U/L ALT 40 (12-78) U/L Alkaline Phosphatase 92 (45-117) U/L Albumin 3.6 (3.4-5.0) gm/dl Urine 11/02/18 Range/Units 22:10 Urine Color Yellow Urine Appearance Clear (Clear) Urine pH 7.5 (4.5-7.5) Ur Specific [place] 1.010 (1.000-1.030) Urine Protein Negative (Negative) Urine Glucose (UA) Negative (Negative) Medications Administered Current Inpatient Medications Acetaminophen (Tylenol) 650 mg PO Q4H PRN PRN Reason: Pain or Fever Stop: 12/03/18 00:19 Last Admin: 11/03/18 11:26 Dose: 650 mg Documented by: Albuterol (Ventolin Hfa) 2 puffs INH QID PRN PRN Reason: Shortness Of Breath Or Wheezin Bupropion HCl (Wellbutrin-Sr) 150 mg PO BID [facility] Stop: 12/03/18 08:59 Last Admin: 11/03/18 09:07 Dose: 150 mg Documented by: Hydrochlorothiazide (Hctz) 25 mg PO QAM [facility] Stop: 12/03/18 11:59 Losartan Potassium (Cozaar) 50 mg PO QAM [facility] Stop: 12/03/18 11:59 Metoprolol Tartrate (Lopressor) 2.5 mg IV Q4 PRN PRN Reason: Hypertension Stop: 12/03/18 00:19 Nitroglycerin (Nitrostat) 0.4 mg SL UD PRN PRN Reason: Chest Pain Stop: 12/03/18 00:19 Ondansetron HCl (Zofran) 4 mg IV Q6H PRN PRN Reason: Nausea Stop: 12/03/18 00:19 Polyethylene Glycol (Miralax Powder Packet) 17 gm PO DAILY PRN PRN Reason: Constipation Stop: 12/03/18 00:19
[2018-11-03] MEDS ORDERED: LOSARTAN POTASSIUM 50 MG TAB PO SCH (12:00)
[2018-11-03] MEDS ORDERED: hydroCHLOROthiazide 25 MG TAB PO SCH (12:00)
[2018-11-03] MEDS ORDERED: FERROUS SULFATE 325 MG TAB PO SCH (17:00)
[2018-11-03 19:10] LABS: Folate (Folic Acid) 11.42 ng/ml (>5.38)
--- NOTE | 2018-11-04 08:43 | Discharge Summary ---
Date of Service November 04, 2018 Admission HPI Per Admitting Provider DICTATED BY: Jordy Jimenez MD DATE OF ADMISSION: 11/02/2018 CHIEF COMPLAINT: Chest pain. HISTORY OF PRESENT ILLNESS: This is a 43-year-old female with past medical history significant for gastroesophageal reflux disease, hypertension, obesity, allergic rhinitis, degenerative disc disease, chronic bilateral thoracic back pain, status post bilateral breast reduction who presents with chest pain. The patient started having chest pain in the middle of the chest radiating to her arms and back since yesterday with a pressure-like feeling, [id number] in nature. It was not associated with any activity. It was constant pain. She has some dizziness. Denies any headache. No nausea. No vomiting. No sweating. No shortness of breath. No cough. No fever. No abdominal pain. No diarrhea. No constipation. No black stools or blood in the stools. No hematuria or burning micturition. No dysphagia. No blurred vision. No earache. No runny nose. No sore throat. The patient is noncompliant with her medications. She states she stopped taking her blood pressure medication since she forgotten to take and then she stopped taking it. Her blood pressure was high in the Emergency Room. Received I.V. Lopressor. She still has some chest pain about 6/10 in severity. Otherwise, she is resting comfortably. Admission Exam Per Admitting Provider GENERAL: The patient is alert and oriented, morbidly obese. VITAL SIGNS: Temperature 37.7, pulse 92, respiratory rate 18, blood pressure when she came in was 217/144 and oxygen 99% on room air. HEENT: No pallor. No icterus. Pupils are equal, round and reactive to light. NECK: No JVD. No neck masses. No carotid bruits. CARDIOVASCULAR: S1, S2 heard. Regular rate and rhythm. No murmur. No gallop. RESPIRATORY SYSTEM: Normal AP diameter. No thyromegaly. No wheezing. No crackles. ABDOMEN: Soft. Bowel sounds present. Nontender. No distention. CENTRAL NERVOUS SYSTEM: Cranial nerves II through XII grossly intact. Nonfocal. EXTREMITIES: No edema. No erythema. Principal Diagnosis Hypertensive urgency, chest pain-no ACS, iron deficiency anemia, lung nodule- will need follow-up studies Discharge Exam Constitutional well developed, well nourished, + ill appearing and + obese; no acute distress Eyes PERRL, conjunctivae normal, anicteric sclerae ENMT external ear and nose normal, oropharynx normal Neck trachea midline, no thyromegaly Respiratory normal respiratory effort; no respiratory distress Auscultation: lungs clear to auscultation bilaterally Cardiovascular Rate/Rhythm: regular rate and regular rhythm Heart Sounds: no murmur Gastrointestinal (Abdomen) Inspection/Auscultation: abdomen normal to inspection Percussion/Palpation: abdomen soft Neurologic moves all extremities and + focal motor deficit Psychiatric A+Ox3, euthymic affect Lymphatic no cervical or axillary lymphadenopathy Discharge Data Allergies Allergy/AdvReac Type Severity Reaction Status Date / Time erythromycin base Allergy Intermediate HIVES Verified 11/02/18 22:05 Consultations 11/02/18 23:13 ED Decision to Admit Stat 11/03/18 08:00 Consult Cardiology Routine Ordered Studies 11/02/18 21:39 CT head/brain wo con Stat 11/02/18 22:06 CT angio chest dissec wo/w con Stat Hospital Course (1) Hypertensive urgency: She has been taking her blood pressure medications She presented with a very high blood pressure associated with chest pain Her medication has been restarted and the blood pressure is trending down Complaint of some headache likely secondary Nitropaste Denies any symptoms during my second visit to have this morning She wants to go home (2) Atypical chest pain: Presented with precordial chest pain without any other associated symptoms Serial troponins have been negative with negative EKG Echo of the heart-poor study due to patient characteristics of poor acoustic window, LV wall motion is normal, EF 55 to 60%, grade 1 diastolic dysfunction and no significant valvular disease Appreciate cardiology input and recommendation We will have outpatient stress echo (3) Lung nodule: Noted to have a small nodule of 9 mm subpleural in the lateral basal right lower lobe. She has history of smoking Repeat CT should be followed up within 3 months Prediabetes Can start metformin from Monday She wants to go home Discussed with keyliner We will schedule for an outpatient stress echo She is strongly advised to continue her blood pressure medications and avoid smoking Total Time Total Time Spent Total Time Spent (In Minutes): 35 minutes Total Time Includes: Examination of the Patient, Discharge Planning, Medication Reconciliation and Communication With Other Providers Discharge Plan Discharge Items Patient Disposition: Home - Self-Care Reason For Visit: CHEST PAIN Discharge Diagnosis: Hypertensive urgency, chest pain-no ACS, iron deficiency anemia, lung nodule- will need follow-up studies Condition on Discharge: Good Activity: Resume your previous activity Non-emergency contact: Primary Care Provider Call non-emergency contact if: you have any medication questions and your symptoms worsen Follow-up/Referrals: PCP,NO [Primary Care Provider] - (Will make an appointment with your primary care provider within 7 days. Cardiology will arrange for outpatient stress test.) Diet: Carb Consistent or DM2 and Heart Healthy Addtl Attending Provider Instructions: Please take your medications regularly New medicine is iron sulfate for iron deficiency anemia You can start your Metformin from Monday Pending Studies at Discharge: No Visit Report Forms: Smoking Cessation Stand-Alone Forms: My [employer], Work/School Release (Inpt) Medications and DC Order Prescriptions: New ferrous sulfate 325 mg (65 mg iron) Tablet,Delayed Release (Dr/Ec) 325 mg PO BIDM 30 Days Qty: 60 RF: 0 Continued losartan-hydrochlorothiazide [Hyzaar] 100-25 mg tablet 1 tab PO DAILY RF: 0 albuterol sulfate [ProAir HFA] 90 mcg/actuation HFA aerosol inhaler 2 puff inhalation QID PRN (Reason: Shortness Of Breath Or Wheezing) RF: 0 naproxen sodium [Aleve] 220 mg Capsule 880 mg PO DAILY PRN (Reason: Pain) RF: 0 Wellbutrin SR 150 MG 150 mg PO BID RF: 0 metformin 500 MG 500 mg PO BID RF: 0 Discharge Orders: Discharge Order (Routine); Ordered 11/03/18 Ordered By: Hernandez George/Other Patient Handouts: Polysaccharide-Iron Complex Heme Iron Polypeptide Bovine Oral tablet, Dc Taking Med Safely, Prediabetes, Angina, Hypertension Control, Meds Blood Pressure Dc, Diabetes Meal Planning Admission Data Admit Date/Time: 11/02/18 23:49 Attending Provider: Hernandez Guzman Admit Provider: Jordy Jimenez Primary Care Provider: PCP,NO Other Providers: Randy Nick ; Luciano Juarez ; Florian Douglas ; Gabino Bazan ; Jose Trujillo ; Yared Nolasco ; Melanie Enciso ; Monique Morales ; Jordy Jimenez Other Interventions: Discharge Summary Assessment (RN) Last Done: 11/03/18 13:27 DC Date/Time DO NOT enter until pt leaves facility: 11/03/18 14:21
== END 2018-11-03 14:21 | disposition home or self-care (01) ==
LOC: ED 20:27 → 2S 20:27

== ENCOUNTER 2024-09-06 19:29 | Inpatient (IN) ==
[2024-09-06] MEDS ORDERED: VANCOMYCIN CONSULT ACTIVE PRN (20:18)
[2024-09-06 20:31] LABS: Hematocrit (blood only) 25.0 % (37.0-47.0); Hemoglobin 7.3 g/dl (12.0-16.0); Immature Granulocytes # (auto) 0.12 K/uL (0.01-0.20); Immature Granulocytes % (auto) 0.6 %; Mean Corpuscular Hemoglobin 17.9 pg (25.0-34.0); Mean Corpuscular Volume 61.3 fL (80.0-100.0); RDW Standard Deviation 42.8 fL (36.4-46.3); Red Blood Count 4.08 M/uL (4.20-5.40); White Blood Count 18.65 K/ul (4.8-10.8)
[2024-09-06] MEDS: CEFEPIME 2000MG 2,000 MG/20 ML SYR IV STA (20:40)
[2024-09-06] MEDS: ACETAMINOPHEN 500 MG TAB PO STA (20:40)
[2024-09-06] MEDS: VANCOMYCIN HCL 2,750 MG in SODIUM CHLORIDE 0.9% 500 ML IV STA (20:41)
[2024-09-06 20:47] LABS: Alanine Aminotransferase 11.0 U/L (7-52); Alkaline Phosphatase 85.0 U/L (34-104); Anion Gap 9.0 (3-11); Bilirubin,Total 0.6 mg/dl (0.2-1.0); Blood Urea Nitrogen 13.0 mg/dl (6-23); Calcium 9.3 mg/dl (8.6-10.3); Carbon Dioxide 27.0 mmol/L (21-32); Chloride 98.0 mmol/L (98-107); Creatinine Clr Calc Pharmacy 124.8 ml/min; Glucose 125.0 mg/dl (70-99(Fasting)); Magnesium 1.5 mg/dl (1.7-2.4); Potassium 3.2 mmol/L (3.5-5.1); Sodium 134.0 mmol/L (136-145); Total Protein 7.5 gm/dl (6.0-8.3)
[2024-09-06 21:00] LABS: Platelet Count 357 K/uL (130-400)
[2024-09-06] MEDS: OPTIRAY 320 125ml IV ONE (21:24)
--- NOTE | 2024-09-06 21:28 | Emergency Department Note ---
Impression & Plan Sepsis, Abscess, perianal, Symptomatic anemia, Episodic lightheadedness, Hypomagnesemia, Acute hypokalemia ED Provider Note NAME: EMILEE MENA AGE: 48 SEX: F : 1975 ARRIVES VIA: Walk-In INFORMANT: Patient ED PROVIDER(S): Angel Almonte DO CHIEF COMPLAINT: multiple complaints HPI: This is a 48-year-old female with the PMHx of prior back issues with HNP and epidural abscess leading to multiple spine surgeries including the cervical and lumbar, DAYRON on CPAP, hypertension, morbid obesity, GERD and CAROL ANN presenting to [facility] for further evaluation of multiple complaints. patient states that she fell 2 days ago. Patient states she landed on her buttocks. The patient did not strike her head or lose consciousness. She reports since that time she has had episodic lightheadedness. She reports that she has spots in her vision and feels like she is going to pass out. She has also noted to have intermittent fevers at home. Patient reports a large mass on the left buttock. She states there is been drainage and significant pain in this area. Patient denies any other neck or back pain. No cough or congestion. Denies chest pain or palpitations. No shortness of breath. They deny abdominal pain, nausea and vomiting. No urinary complaints. No recent changes in bowel movements. Patient denies recent changes in medications or OTC supplements. Patient offers no other complaints, today. ADDITIONAL HISTORY OBTAINED: Per HPI Chronic Medical/Social Conditions Affecting Care: Per HPI PAST MEDICAL HISTORY: See Below PAST SURGICAL HISTORY: See Below FAMILY HISTORY: See Below SOCIAL HISTORY: See Below HOME MEDICATIONS: See Below ALLERGIES: See Below VITALS: See Below PHYSICAL EXAMINATION: GENERAL: Sitting up in bed, alert, well appearing, well nourished, no distress, non-toxic EYE EXAM: normal conjunctiva. PERRL and EOM's grossly intact. OROPHARYNX: no exudate, no erythema, lips, buccal mucosa, and tongue normal and mucous membranes are dry NECK: supple, no nuchal rigidity, no adenopathy, non-tender LUNGS: Clear to auscultation. Normal chest wall mechanics HEART: no murmurs, tachycardic rate, regular rhythm ABDOMEN: abdomen soft, non-tender, normo-active bowel sounds, no masses, no rebound or guarding. BACK: Back is symmetrical on inspection and there is no deformity, no midline tenderness, no CVA tenderness. Tense tissues of the superior L buttock with small area of drainage in the L cleft with purulent fluid. SKIN: no rashes and no bruising UPPER EXTREMITIES: upper extremities are grossly normal. LOWER EXTREMITIES: No pitting edema. NEURO EXAM: Normal sensorium, cranial nerves II-XII grossly intact, normal speech, no gross weakness of arms, no gross weakness of legs. MEDICAL DECISION MAKING: Differential diagnoses includes but not limited to sepsis, bacteremia, viral URI, pneumonia, cellulitis, abscess, infected pilonidal cyst, perirectal abscess, fistula, fracture, dislocation, musculoskeletal strain, soft tissue injury, intra-abdominal pathology, electrolyte derangements, dehydration, symptomatic anemia In summary, this is a 48 year old female who presented with lightheadedness as well as low back/sacral pain with drainage. Differential as above. Nursing notes and pertinent past medical records reviewed. Vital signs reviewed and the patient is tachycardic and febrile but otherwise hemodynamically stable. History and presentation revealed fall 2 days ago now with worsening symptoms as well as pain. She does have drainage from her buttock. She denies history of infections in the past here. She denies any history of pilonidal cyst. Patient did not strike her head. She has no pain elsewhere. No other evidence of trauma on physical examination. There is an area of cellulitis with concerns for abscess formulation on the left buttock. This could be a pilonidal cyst. Given the patient's fall onto her buttocks and increased pain as well as evidence of infection, we will obtain a CT scan for further evaluation. Given the patient's vital signs, she meets SIRS criteria. I do have a potential source of infection including cellulitis and abscess. This is relatively close to the rectum. Could be a perirectal abscess or fistula formation. This further necessitates the need for CT scan. Given the patient's vital signs and physical examination, the patient will be a sepsis alert and placed on broad- spectrum antibiotics. Will begin IV fluid resuscitation. Suspect her lightheadedness and other constellation of symptoms are largely related to her sepsis. Patient will be given antipyretics in addition to her fluids. Diagnostics interpreted by me include EKG and cardiac monitoring as listed below: -Cardiac Monitoring: An order was placed for continuous cardiac monitoring. The monitor shows a rate of 90-140s with regular rhythm. -ECG: EKG independently interpreted by me reveals sinus tachycardia at a rate of [address] segment changes to suggest STEMI. Intervals otherwise within normal limits. Patient completed laboratory studies and imaging. Results independently interpreted by me are CBC shows a leukocytosis of 18,000. Mild anemia with acute change at 7.3. She could have a component of symptomatic anemia. Hypomagnesemia and hypokalemia noted. Will give IV and oral replenishment. CXR independently interpreted by me reveals no evidence of focal consolidation to suggest pna. No large pneumothorax or pleural effusion. I independently interpreted the patient's CT abdomen/pelvis. There appears to be a fluid collection with gas formation over the left buttock. This does correlate with physical examination. Given possible tracking of air and proximity to the rectum, will discuss with general surgery. I did obtain a bedside ultrasound of this area. She does appear to have a superficial collection of fluid approximately 2 to 3 cm deep in the soft tissue. Does appear relatively complex. Area of cellulitis over this abscess. Given the proximity to the rectum, I am not comfortable with further drainage including incision at this time. She is already having drainage through an area in the skin. Do not feel that there is a need for urgent I&D at this time. General surgery paged at [phone] and spoke with Beni. He will evaluate the patient. Ultimately, the decision was made to admit the patient for sepsis 2/2 perianal abscess. I discussed the case with the hospitalist service via telephone and they are agreeable to admit the patient to their services at [phone] Jimenez. Based on the above, including the patient's age, coexisting illnesses, labs, imaging, and exam findings the decision to treat as an inpatient. I discussed the patient with the hospitalist team who recommended admission to their services. They received the medications, treatments, interventions indicated above and their condition remained stable. I discussed my findings with the patient and their family and they understand and agree with the treatment plan. All patient / family questions were answered to their satisfaction. Consults/Care Managements Discussions: Per [facility] ER treatment provided: See above Procedures:none Critical Care: None The chart was completed utilizing [employer] voice recognition software. Grammatical errors, random word insertions, pronoun errors, and incomplete sentences are an occasional consequence of this system due to software limitations, ambient noise, and hardware issues. Any formal questions or concerns about the content, text, or information contained within the body of this dictation should be directly addressed to the physician for clarification. Past Med/Surg History Problem List (Updated 09/08/24 @ 02:19 by Angel Almonte DO) Acute hypokalemia (Acute) Hypomagnesemia (Acute) Episodic lightheadedness (Acute) Symptomatic anemia (Acute) Abscess, perianal (Acute) Sepsis (Acute) Perianal abscess Lung nodule (Acute) Hypertensive urgency (Acute) Atypical chest pain (Acute) Abscess in epidural space of lumbar spine (Acute) HNP (herniated nucleus pulposus), lumbar (Acute) Medical History (Updated 09/08/24 @ 02:19 by Angel Almonte DO) High blood pressure Diabetes Surgical History No pertinent past surgical history Family History Other Cancer Social History Smoking Status: Former smoker Tobacco Type: Cigarettes Cigarettes Per Day: 20; Second Hand Exposure: No; Do You Dip or Chew Tobacco: No; Tobacco Cessation Education Requested by Patient: No Hx Alcohol Use: Yes Hx Substance Use: No Preferred Language: Citizen Of [place] Communication Ability: Effective Cosmetic Consultant Required: No Beliefs That Will Affect Care: None Current Living Situation: Spouse Other Information That Helps Us Care for You: No Feels Safe at Home: Yes Safety Concerns: Feels Safe At This Time Assistive Devices: CPAP Allergies Allergies Allergy/AdvReac Type Severity Reaction Status Date / Time erythromycin base Allergy Intermediate Hives Verified 09/06/24 20:59 lisinopril AdvReac Mild Cough Verified 09/06/24 20:59 RAW FRUITS Allergy Mild TINGLING Uncoded 09/06/24 20:59 OF MOUTH Home Meds Home Medications Medication Instructions Recorded Confirmed albuterol sulfate 90 mcg/actuation 2 puff inhalation QID PRN 09/06/24 09/06/24 aerosol inhaler Shortness Of Breath Or Wheezing bupropion HCl 300 mg 24 hr tablet, 300 mg PO DAILY 09/06/24 09/06/24 extended release carvedilol 12.5 mg tablet 12.5 mg PO QAM 09/06/24 09/06/24 chlorthalidone 25 mg tablet 25 mg PO DAILY 09/06/24 09/06/24 clindamycin phosphate 1 % lotion 1 applic topical BID PRN NEEDED 09/06/24 09/06/24 escitalopram oxalate 10 mg tablet 10 mg PO DAILY 09/06/24 09/06/24 fluticasone propionate 50 1 spray intranasal DAILY PRN 09/06/24 09/06/24 mcg/actuation nasal Congestion spray,suspension olmesartan 20 mg tablet 10 mg PO DAILY 09/06/24 09/06/24 triamcinolone acetonide 0.5 % 1 applic topical DIRECTED PRN 09/06/24 09/06/24 topical cream Skin Irritation Results & Data (ED) Vital Signs Vital Signs - 24 hr 09/06/24 19:33 09/06/24 20:18 09/06/24 20:51 Temperature 39.3 C H Temperature Source Oral Pulse Rate 132 H 136 H 120 H Pulse Rate from SpO2 Sensor Respiratory Rate 18 19 Respiratory Effort / Characteristics Non-Labored Spontaneous Respiratory Depth Normal Blood Pressure 123/76 Blood Pressure Mean 91 Pulse Oximetry 98 98 Oxygen Delivery Method Room Air Room Air Sepsis Recent Fever Within 48 Hours Yes Sepsis New/Unexplained Change in Mental Status No Sepsis Action Taken by Nursing Physician Notified 09/06/24 21:06 09/06/24 21:33 09/06/24 21:54 Temperature Temperature Source Pulse Rate 122 H 119 H Pulse Rate from SpO2 Sensor 122 H 118 H 115 H Respiratory Rate 21 16 Respiratory Effort / Characteristics Respiratory Depth Blood Pressure 118/68 Blood Pressure Mean 84 Pulse Oximetry 98 97 96 Oxygen Delivery Method Sepsis Recent Fever Within 48 Hours Sepsis New/Unexplained Change in Mental Status Sepsis Action Taken by Nursing 09/06/24 22:40 09/06/24 22:45 09/06/24 23:00 Temperature 36.8 C Temperature Source Oral Pulse Rate Pulse Rate from SpO2 Sensor 126 H Respiratory Rate Respiratory Effort / Characteristics Respiratory Depth Blood Pressure 99/62 L Blood Pressure Mean 75 Pulse Oximetry 98 Oxygen Delivery Method Sepsis Recent Fever Within 48 Hours Sepsis New/Unexplained Change in Mental Status Sepsis Action Taken by Nursing 09/06/24 23:03 09/06/24 23:09 09/06/24 23:12 Temperature Temperature Source Pulse Rate 113 H Pulse Rate from SpO2 Sensor 113 H 113 H Respiratory Rate Respiratory Effort / Characteristics Respiratory Depth Blood Pressure 96/61 L Blood Pressure Mean 76 Pulse Oximetry 96 99 Oxygen Delivery Method Sepsis Recent Fever Within 48 Hours Sepsis New/Unexplained Change in Mental Status Sepsis Action Taken by Nursing Laboratory Data 09/07/24 16:12 09/07/24 07:16 Lab Results 09/06/24 09/06/24 Range/Units 19:50 20:37 WBC 18.65 H (4.8-10.8) K/ul RBC 4.08 L (4.20-5.40) M/uL Hgb 7.3 L (12.0-16.0) g/dl Hct 25.0 L (37.0-47.0) % MCV 61.3 L (80.0-100.0) fL MCH 17.9 L (25.0-34.0) pg MCHC 29.2 L (32.0-36.0) g/dL RDW Std Deviation 42.8 (36.4-46.3) fL RDW Coeff of Gladys 20.2 H (11.5-14.5) % Plt Count 357 (130-400) K/uL MPV 9.2 L (9.4-12.4) fL Immature Gran % (Auto) 0.6 % Neut % (Auto) 75.3 % Lymph % (Auto) 12.3 % Carroll % (Auto) 11.3 % Eos % (Auto) 0.3 % Baso % (Auto) 0.2 % Neut # (Auto) 14.05 H (1.40-6.50) K/uL Lymph # (Auto) 2.30 (1.20-3.40) K/uL Carroll # (Auto) 2.10 H (0.11-0.59) K/uL Eos # (Auto) 0.05 (0.00-0.50) K/uL Baso # (Auto) 0.03 (0.00-0.20) K/uL Immature Gran # (Auto) 0.12 (0.01-0.20) K/uL Anisocytosis Present Microcytosis Present Tear Drop Cells 1+ Stomatocytes 1+ Sodium 134 L (136-145) mmol/L Potassium 3.2 L (3.5-5.1) mmol/L Chloride 98 (98-107) mmol/L Carbon Dioxide 27 (21-32) mmol/L Anion Gap 9 (3-11) BUN 13 (6-23) mg/dl Creatinine 0.92 (0.6-1.2) mg/dl Est Cr Clr Drug Dosing 124.8 ml/min eGFR 77.77 BUN/Creatinine Ratio 14.1 (10-20) Glucose 125 H (70-99(Fasting)) mg/dl Lactate 1.2 (0.4-2.0) mmol/L Calcium 9.3 (8.6-10.3) mg/dl Magnesium 1.5 L (1.7-2.4) mg/dl Total Bilirubin 0.6 (0.2-1.0) mg/dl Direct Bilirubin 0.1 (0-0.2) mg/dl AST 15 (13-39) U/L ALT 11 (7-52) U/L Alkaline Phosphatase 85 (34-104) U/L Troponin I High Sens 6.4 (0-14) pg/ml Total Protein 7.5 (6.0-8.3) gm/dl Albumin 3.7 (3.4-5.0) gm/dl Procalcitonin 0.03 (0-0.5) ng/ml Administered Medications Acetaminophen (Acetaminophen 325 Mg Tab) 650 mg PO Q4H PRN PRN Reason: Pain or Fever Stop: 10/07/24 04:26 Last Admin: 09/07/24 07:57 Dose: 650 mg Documented By: BLANCA Bupropion HCl (Bupropion Xl 300 Mg Tabcr) 300 mg PO DAILY [facility] Stop: 10/07/24 08:59 Last Admin: 09/07/24 07:52 Dose: 300 mg Documented By: BLANCA Carvedilol (Carvedilol 12.5 Mg Tab) 12.5 mg PO QAM [facility] Stop: 10/07/24 08:59 Last Admin: 09/07/24 07:51 Dose: 12.5 mg Documented By: BLANCA Escitalopram Oxalate (Escitalopram Oxalate 10 Mg Tab) 10 mg PO DAILY [facility] Stop: 10/07/24 08:59 Last Admin: 09/07/24 07:52 Dose: 10 mg Documented By: BLANCA Piperacillin Sod/Tazobactam Sod (Zosyn) 4.5 gm in 100 mls @ 25 mls/hr IV Q8H [facility]; Protocol Stop: 09/14/24 05:59 Last Admin: 09/07/24 22:59 Dose: 25 mls/hr Documented By: Infusion: 09/07/24 17:39 Dose: Infused Documented By: Admin: 09/07/24 13:38 Dose: 25 mls/hr Documented By: Infusion: 09/07/24 11:00 Dose: Infused Documented By: Admin: 09/07/24 05:56 Dose: 25 mls/hr Documented By: MOSES Sodium Chloride (Nss) 1,000 mls @ 125 mls/hr IV .Q8H [facility] Stop: 09/10/24 04:26 Last Admin: 09/07/24 20:23 Dose: 125 mls/hr Documented By: Infusion: 09/07/24 20:23 Dose: Infused Documented By: Admin: 09/07/24 12:33 Dose: 125 mls/hr Documented By: Infusion: 09/07/24 12:33 Dose: Infused Documented By: Admin: 09/07/24 04:53 Dose: 125 mls/hr Documented By: MOSES Vancomycin HCl 1,500 mg/ (Sodium Chloride) 530 mls @ 200 mls/hr IV Q12H [facility] Stop: 09/14/24 05:59 Last Infusion: 09/07/24 19:55 Dose: Infused Documented By: Admin: 09/07/24 17:16 Dose: 200 mls/hr Documented By: Infusion: 09/07/24 08:36 Dose: Infused Documented By: Admin: 09/07/24 05:11 Dose: 200 mls/hr Documented By: MOSES Melatonin (Melatonin 3 Mg Tab) 3 mg PO HS PRN PRN Reason: Sleep Stop: 10/07/24 19:52 Last Admin: 09/07/24 22:58 Dose: 3 mg Documented By: MOSES Discontinued Medications Acetaminophen (Acetaminophen 500 Mg Tab) 1,000 mg PO NOW STA Stop: 09/06/24 20:19 Last Admin: 09/06/24 20:40 Dose: 1,000 mg Documented By: MAHSA Sodium Chloride (Nss) 1,000 mls @ 999 mls/hr IV .Q1H1M [facility]IN[facility] Stop: 09/06/24 21:30 Last Infusion: 09/06/24 22:47 Dose: Infused Documented By: Admin: 09/06/24 21:48 Dose: 999 mls/hr Documented By: MAHSA Vancomycin HCl 2,750 mg/ (Sodium Chloride) 500 mls @ 200 mls/hr IV NOW STA Stop: 09/06/24 22:47 Last Infusion: 09/06/24 23:11 Dose: Infused Documented By: Admin: 09/06/24 20:41 Dose: 200 mls/hr Documented By: BS Cefepime HCl (Maxipime 2000mg) 2,000 mg in 20 mls @ 5 mls/min IV NOW STA; Protocol Stop: 09/06/24 20:21 Last Admin: 09/06/24 20:40 Dose: 5 mls/min Documented By: MAHSA Magnesium Sulfate/Dextrose (Magnesium Sulfate / D5w) 1 gm in 100 mls @ 100 mls/hr IV Q1H [facility] Stop: 09/06/24 23:27 Last Infusion: 09/07/24 00:46 Dose: Infused Documented By: Admin: 09/06/24 23:26 Dose: 100 mls/hr Documented By: Infusion: 09/06/24 22:47 Dose: Infused Documented By: Admin: 09/06/24 21:34 Dose: 100 mls/hr Documented By: QGV Piperacillin Sod/Tazobactam Sod (Zosyn) 4.5 gm in 100 mls @ 200 mls/hr IV NOW STA; Protocol Stop: 09/07/24 00:48 Last Infusion: 09/07/24 02:00 Dose: Infused Documented By: Admin: 09/07/24 01:28 Dose: 200 mls/hr Documented By: ONOFRE Potassium Chloride (K Gregorio / Wtr) 10 meq in 100 mls @ 100 mls/hr IV Q1H [facility] Stop: 09/07/24 12:59 Last Infusion: 09/07/24 14:34 Dose: Infused Documented By: Admin: 09/07/24 13:23 Dose: 100 mls/hr Documented By: Infusion: 09/07/24 13:06 Dose: Infused Documented By: Admin: 09/07/24 12:06 Dose: 100 mls/hr Documented By: Infusion: 09/07/24 12:06 Dose: Infused Documented By: Admin: 09/07/24 11:06 Dose: 100 mls/hr Documented By: BLANCA Ioversol (Optiray 320 125ml) 115 ml IV ONCE ONE Stop: 09/06/24 21:25 Last Admin: 09/06/24 21:24 Dose: 115 ml Documented By: AUTUMN Ketorolac Tromethamine (Ketorolac Tromethamine 15 Mg/Ml Vial) 15 mg IV NOW ONE Stop: 09/07/24 05:26 Last Admin: 09/07/24 05:54 Dose: 15 mg Documented By: MOSES Potassium Chloride (Potassium Chloride Crtab 20 Meq Tabcr) 40 meq PO NOW STA Stop: 09/06/24 21:29 Last Admin: 09/06/24 21:34 Dose: 40 meq Documented By: MICHELLEV Imaging Data Radiologist's Impression: Abdomen/Pelvis CT 09/06/24 20:18 Exam(s): CT ABDOMEN + PELVIS With Contrast IV Amt: 115 ml optiray 320 EXAM: CT Abdomen and Pelvis With Intravenous Contrast CLINICAL HISTORY: Reason for exam: possible buttock abscess vs pilonidal. TECHNIQUE: Axial computed tomography images of the abdomen and pelvis with intravenous contrast. CTDI is 28.14 mGy and DLP is 1739.04 mGy-cm. Automated exposure control was utilized for the study. A dose lowering technique was utilized adhering to the principles of ALARA. CONTRAST: Patient received 115 ml optiray 320 of IV contrast COMPARISON: No relevant prior studies available. FINDINGS: Lung bases: Unremarkable. No mass. No consolidation. ABDOMEN: Liver: Unremarkable. No mass. Gallbladder and bile ducts: Unremarkable. No calcified stones. No ductal dilation. Pancreas: Unremarkable. No mass. No ductal dilation. Spleen: Unremarkable. No splenomegaly. Adrenals: Unremarkable. No mass. Kidneys and ureters: Unremarkable. No solid mass. No hydronephrosis. Stomach and bowel: Unremarkable. No obstruction. No mucosal thickening. PELVIS: Appendix: No findings to suggest acute appendicitis. Bladder: Unremarkable. No mass. Reproductive: Fibroid uterus. ABDOMEN and PELVIS: Intraperitoneal space: Unremarkable. No free air. No significant fluid collection. Bones/joints: No acute fracture. No dislocation. Soft tissues: 2.6 x 4.8 cm left perianal abscess. Vasculature: Unremarkable. No abdominal aortic aneurysm. Lymph nodes: Unremarkable. No enlarged lymph nodes. IMPRESSION: 2.6 x 4.8 cm left perianal abscess Fibroid uterus Electronically signed by: Rory Lilly MD 09/06/24 22:42 PM Chest X-Ray 09/06/24 20:18 Exam(s): XR CXR 1 VIEW EXAM: XR Chest, 1 View CLINICAL HISTORY: Reason for exam: Sepsis. TECHNIQUE: Frontal view of the chest. COMPARISON: No relevant prior studies available. FINDINGS: Lungs: Unremarkable. No consolidation. Pleural space: Unremarkable. No pneumothorax. Heart: Unremarkable. No cardiomegaly. Mediastinum: Unremarkable. Normal mediastinal contour. Bones/joints: Unremarkable. No acute fracture. IMPRESSION: Normal chest x-ray. Electronically signed by: Rory Lilly MD 09/06/24 21:38 PM Discharge Plan Visit Data Chief Complaint: Dizziness Stated Complaint: DIZZINESS, HIGH BP, FALL, FATIGUE, SOB ED Provider: Angel Almonte Discharge Problem: Sepsis, Abscess, perianal, Symptomatic anemia, Episodic lightheadedness, Hypomagnesemia, Acute hypokalemia Patient Disposition: Admitted As Inpatient Condition: Serious Discharge Instructions Interventions: ED Discharge Assessment Last Done: 09/07/24 04:06
[2024-09-06] MEDS: MAGNESIUM SULFATE / D5W 1 GM/100 ML BAG IV SCH (21:34)
[2024-09-06] MEDS: POTASSIUM CHLORIDE CRTAB 20 MEQ TABCR PO STA (21:34)
--- NOTE | 2024-09-06 21:39 | XRay Report ---
Exam(s): XR CXR 1 VIEW EXAM: XR Chest, 1 View CLINICAL HISTORY: Reason for exam: Sepsis. TECHNIQUE: Frontal view of the chest. COMPARISON: No relevant prior studies available. FINDINGS: Lungs: Unremarkable. No consolidation. Pleural space: Unremarkable. No pneumothorax. Heart: Unremarkable. No cardiomegaly. Mediastinum: Unremarkable. Normal mediastinal contour. Bones/joints: Unremarkable. No acute fracture. IMPRESSION: Normal chest x-ray. Electronically signed by: Rory Lilly MD 09/06/24 21:38 PM
[2024-09-06] MEDS: SODIUM CHLORIDE 0.9% 1,000 ML IV SCH (21:48)
[2024-09-06 22:30] LABS: Anisocytosis Present; Microcytosis Present; Stomatocytes 1+; Tear Drop Cells 1+
--- NOTE | 2024-09-06 22:43 | CT Scan Report ---
Exam(s): CT ABDOMEN + PELVIS With Contrast IV Amt: 115 ml optiray 320 EXAM: CT Abdomen and Pelvis With Intravenous Contrast CLINICAL HISTORY: Reason for exam: possible buttock abscess vs pilonidal. TECHNIQUE: Axial computed tomography images of the abdomen and pelvis with intravenous contrast. CTDI is 28.14 mGy and DLP is 1739.04 mGy-cm. Automated exposure control was utilized for the study. A dose lowering technique was utilized adhering to the principles of ALARA. CONTRAST: Patient received 115 ml optiray 320 of IV contrast COMPARISON: No relevant prior studies available. FINDINGS: Lung bases: Unremarkable. No mass. No consolidation. ABDOMEN: Liver: Unremarkable. No mass. Gallbladder and bile ducts: Unremarkable. No calcified stones. No ductal dilation. Pancreas: Unremarkable. No mass. No ductal dilation. Spleen: Unremarkable. No splenomegaly. Adrenals: Unremarkable. No mass. Kidneys and ureters: Unremarkable. No solid mass. No hydronephrosis. Stomach and bowel: Unremarkable. No obstruction. No mucosal thickening. PELVIS: Appendix: No findings to suggest acute appendicitis. Bladder: Unremarkable. No mass. Reproductive: Fibroid uterus. ABDOMEN and PELVIS: Intraperitoneal space: Unremarkable. No free air. No significant fluid collection. Bones/joints: No acute fracture. No dislocation. Soft tissues: 2.6 x 4.8 cm left perianal abscess. Vasculature: Unremarkable. No abdominal aortic aneurysm. Lymph nodes: Unremarkable. No enlarged lymph nodes. IMPRESSION: 2.6 x 4.8 cm left perianal abscess Fibroid uterus Electronically signed by: Rory Lilly MD 09/06/24 22:42 PM
--- NOTE | 2024-09-07 00:20 | Surgery Consultation ---
Date of Consultation September 07, 2024 Assessment & Plan (1) Perianal abscess: I discussed with the treating physician the emergency department the patient is being admitted to the hospitalist service. Surgical recommendations are as follows: Provide analgesics Provide antiemetics Patient has received antibiotics in the form of cefepime and vancomycin. I am going to add a dose of Zosyn for anaerobic coverage. Would recommend continuing Zosyn and vancomycin at time of admission Would recommend hydrating the patient with IV fluids At the present time the patient's fever has resolved and clinically she does not appear toxic. As her abscess is currently draining and is smaller in size we will see how she does with conservative measures as outlined above. Would recommend keeping the patient n.p.o. for the present time and should be reevaluated by the surgical team the morning of 09/07/2024 and determination will be made if patient will require formal incision and drainage. If this is required I suspect she will need to be taken to the operating room to have such a procedure done Additional recommendations be forthcoming based on her clinical course as unfolds Recommend utilizing only SCDs for DVT prevention, no chemical needs until his ascertain whether or not the patient will require any procedural intervention as above. large amount of drainage overnight. feeling improvement. labs pending. likely will not need OR since she is already draining. continue IV antibiotics. d/c later today or tomorrow. History of Present Illness Reason for Consultation: Perianal abscess History of Present Illness This is a 48-year-old female who presented to the emergency department secondary to some lightheadedness and dizziness. Patient says that she was ambulating on her steps approximate 2 days ago when she fell on the stairs landing on her buttocks. She said that she did not lose consciousness or hit her head. She is unsure how she fell but says she was not feeling quite right with some lightheadedness prior to falling. After falling the patient noticed in the area of her rectum. She says that the area has been draining some puslike material. Since the fall and this area started draining she says she continues to not feel well having lightheadedness and feeling generally weak and tired. She has had on and off chills. She says that she did not check her temperature but has not felt feverish. She has no history of diabetes. She does note that she had a microdiscectomy at the L5-S1 level in 2014 and did develop an infection following the surgery but could not provide any additional details. She has no prior history of perirectal or perianal abscess. Since arrival to the hospital she has had labs and imaging which had been reviewed. A chest x-ray showed no evidence of pneumonia. A CT scan of the abdomen pelvis showed the patient had a 2.6 x 4.8 cm left perianal abscess. Labs including CBC were white blood cell count was elevated 18.6. Hemoglobin and hematocrit were 7.3 and 25.0. Platelet count was normal. Chemistry profile showed sodium is 134 with a potassium of 3.2. BUN and creatinine were both normal. Her magnesium was 1.5. The patient presented to the emergency department she was noted to be hypotensive, tachycardic, and febrile. Patient was resuscitated with intravenous fluids and antibiotics and these parameters have improved. At the time of my interview she was resting comfortably in bed and she was in no distress. Allergies Allergy/AdvReac Type Severity Reaction Status Date / Time erythromycin base Allergy Intermediate Hives Verified 09/06/24 20:59 lisinopril AdvReac Mild Cough Verified 09/06/24 20:59 RAW FRUITS Allergy Mild TINGLING Uncoded 09/06/24 20:59 OF MOUTH Home Medications Medication Instructions Recorded Confirmed Type albuterol sulfate 90 mcg/actuation 2 puff inhalation QID PRN 09/06/24 09/06/24 History aerosol inhaler Shortness Of Breath Or Wheezing bupropion HCl 300 mg 24 hr tablet, 300 mg PO DAILY 09/06/24 09/06/24 History extended release carvedilol 12.5 mg tablet 12.5 mg PO QAM 09/06/24 09/06/24 History chlorthalidone 25 mg tablet 25 mg PO DAILY 09/06/24 09/06/24 History clindamycin phosphate 1 % lotion 1 applic topical BID PRN NEEDED 09/06/24 09/06/24 History escitalopram oxalate 10 mg tablet 10 mg PO DAILY 09/06/24 09/06/24 History fluticasone propionate 50 1 spray intranasal DAILY PRN 09/06/24 09/06/24 History mcg/actuation nasal Congestion spray,suspension olmesartan 20 mg tablet 10 mg PO DAILY 09/06/24 09/06/24 History triamcinolone acetonide 0.5 % 1 applic topical DIRECTED PRN 09/06/24 09/06/24 History topical cream Skin Irritation Patient History Medical History (Updated 09/07/24 @ 00:15 by Eddie Griffin PA-C) High blood pressure Diabetes Surgical History No pertinent past surgical history Family History Other Cancer Social History Smoking Status: Former smoker Tobacco Type: Cigarettes Cigarettes Per Day: 20; Second Hand Exposure: No; Do You Dip or Chew Tobacco: No; Tobacco Cessation Education Requested by Patient: No Hx Alcohol Use: Yes Hx Substance Use: No Preferred Language: [place]se Communication Ability: Effective E Business Consultant Required: No Beliefs That Will Affect Care: None Current Living Situation: Spouse Other Information That Helps Us Care for You: No Feels Safe at Home: Yes Safety Concerns: Feels Safe At This Time Assistive Devices: CPAP Review of Systems Review of Systems: All systems reviewed & are unremarkable except as noted in HPI & below Physical Exam Physical Exam: With a female nurse business consult present I examined the patient's buttocks/perianal area. Just superior to the gluteal crease the patient had an area of induration which appeared to be greater/more prominent to the left. There is some purulent material draining out of this. The area was not warm but was somewhat tender to palpation. There is no crepitus in the soft tissue Constitutional: WD/WN, vitals as above Eyes: no conjunctival abnormality ENMT: Ears: no hearing impairment and no external ear abnormality Mouth: no oropharynx abnormality Neck: trachea midline Respiratory: normal respiratory effort; no respiratory distress and no labored breathing Cardiovascular: Rate/Rhythm: regular rate and regular rhythm Gastrointestinal (Abdomen): Soft and nontender to palpation. Musculoskeletal: No calf tenderness Skin: no rashes Neurologic: moves all extremities Psychiatric: A+Ox3, euthymic affect Results & Data Vital Signs (Past 12 Hours) Vital Signs Temp Pulse Resp BP Pulse Ox O2 Del Method 09/06/24 23:12 114 H 18 96/61 L 98 Room Air 09/06/24 23:12 113 H 96/61 L 09/06/24 23:09 99 09/06/24 23:03 96 09/06/24 23:00 36.8 C 09/06/24 22:45 98 09/06/24 22:40 99/62 L 09/06/24 21:54 96 09/06/24 21:33 119 H 16 97 09/06/24 21:06 122 H 21 118/68 98 09/06/24 20:51 120 H 09/06/24 20:18 136 H 19 98 Room Air 09/06/24 19:33 39.3 C H 132 H 18 123/76 98 Room Air PG Care Time/CCT Total # of Minutes Spent Total Time Spent with Patient: Total time spent is greater than 50% in coordination of care (as documented) at patient's floor/unit and/or counseling patient: Coding Level of Care Code 89477 IN/OBS CONSULT LVL 5,80M Diagnoses Perianal abscess K61.0
[2024-09-07] MEDS: PIPERACILLIN/TAZOBACTAM 4.5 GM/100 ML BAG IV STA (01:28)
--- NOTE | 2024-09-07 02:15 | History & Physical Report ---
Date of Service September 07, 2024 Assessment & Plan (1) Perianal abscess: Plan: 48-year-old female with past medical history significant for obstructive sleep apnea on CPAP, hypertension, morbid obesity, GERD, iron deficiency, degenerative disc disease, spinal stenosis lumbar region, tobacco disorder, presents with dizziness and recent fall on the back and drainage from the perineal region. Patient was feeling dizzy. She fell from the steps couple of days ago and landed on her buttocks. Did not hit her head. No loss of consciousness. After that was able to ambulate okay. Today she noticed drainage from her perirectal area. And today she also had fever. Denies any bloody stools or black stools. No heavy menses. Denies chest pain or shortness of breath. No cough. No headache or runny nose or sore throat. Perianal abscess On IV Vanco and Zosyn Surgery on board n.p.o. for now IV fluids Monitor the response Dizziness Anemia. Hemoglobin 7.3 Hemoglobin usually 9-10 range Denies any bleeding Will check stool for Hemoccult Iron studies, vitamin B12 and folate levels Anemia could be a cause for her dizziness Will monitor med/telemetry Orthostatics when stable. May consider echocardiogram Blood consent obtained Will follow labs Hypokalemia and hypomagnesia Replacing Follow repeat labs Hypertension Continue Coreg with holding parameters Holding olmesartan and chlorthalidone for now as blood pressure somewhat soft. Follow labs closely as patient is on chlorthalidone Obstructive sleep apnea On CPAP nightly Morbid obesity Counseling History of lumbar spinal stenosis and cervical spinal stenosis Patient has history of cervical corpectomy for stenosis with myelopathy History of back surgery in the past Having chronic back pain with the claudicative radiculopathy in the right leg as per neurosurgery notes Had teleconference with neurosurgery couple of days ago and there is a plan for MRI scan and if needed redo of decompressive surgery for her back and leg symptoms. DVT prophylaxis SCDs for now Disposition Med/telemetry Full code. History of Present Illness Chief Complaint: Dizziness, anemia, perianal abscess Primary Care Provider: Ashlee Black MD 48-year-old female with past medical history significant for obstructive sleep apnea on CPAP, hypertension, morbid obesity, GERD, iron deficiency, degenerative disc disease, spinal stenosis lumbar region, tobacco disorder, presents with dizziness and recent fall on the back and drainage from the perineal region. Patient was feeling dizzy. She fell from the steps couple of days ago and landed on her buttocks. Did not hit her head. No loss of consciousness. After that was able to ambulate okay. Today she noticed drainage from her perirectal area. And today she also had fever. Denies any bloody stools or black stools. No heavy menses. Denies chest pain or shortness of breath. No cough. No headache or runny nose or sore throat. Past medical history. As mentioned above. Past surgical history. Colonoscopy. Colposcopy. Injection of lumbosacral spine. Neck spine fusion surgery. Reduction of breast bilateral. Social history. . Smoked 1 pack a day for 24 years. Alcohol every 2 to 3 weeks. No drug use. Family history. Sister had autoimmune disease. States sister has fibromyalgia. Hypertension. Lupus. Maternal aunt had ovarian cancer. Allergies Allergy/AdvReac Type Severity Reaction Status Date / Time erythromycin base Allergy Intermediate Hives Verified 09/06/24 20:59 lisinopril AdvReac Mild Cough Verified 09/06/24 20:59 RAW FRUITS Allergy Mild TINGLING Uncoded 09/06/24 20:59 OF MOUTH Home Medications Medication Instructions Recorded Confirmed Type albuterol sulfate 90 mcg/actuation 2 puff inhalation QID PRN 09/06/24 09/06/24 History aerosol inhaler Shortness Of Breath Or Wheezing bupropion HCl 300 mg 24 hr tablet, 300 mg PO DAILY 09/06/24 09/06/24 History extended release carvedilol 12.5 mg tablet 12.5 mg PO QAM 09/06/24 09/06/24 History chlorthalidone 25 mg tablet 25 mg PO DAILY 09/06/24 09/06/24 History clindamycin phosphate 1 % lotion 1 applic topical BID PRN NEEDED 09/06/24 09/06/24 History escitalopram oxalate 10 mg tablet 10 mg PO DAILY 09/06/24 09/06/24 History fluticasone propionate 50 1 spray intranasal DAILY PRN 09/06/24 09/06/24 History mcg/actuation nasal Congestion spray,suspension olmesartan 20 mg tablet 10 mg PO DAILY 09/06/24 09/06/24 History triamcinolone acetonide 0.5 % 1 applic topical DIRECTED PRN 09/06/24 09/06/24 History topical cream Skin Irritation Past Med/Surg History Problem List (Updated 09/07/24 @ 00:15 by Eddie Griffin PA-C) Perianal abscess Lung nodule (Acute) Hypertensive urgency (Acute) Atypical chest pain (Acute) Abscess in epidural space of lumbar spine (Acute) HNP (herniated nucleus pulposus), lumbar (Acute) Medical History (Updated 09/07/24 @ 00:15 by Eddie Griffin PA-C) High blood pressure Diabetes Surgical History No pertinent past surgical history Family History Other Cancer Social History Smoking Status: Former smoker Tobacco Type: Cigarettes Cigarettes Per Day: 20; Second Hand Exposure: No; Do You Dip or Chew Tobacco: No; Tobacco Cessation Education Requested by Patient: No Hx Alcohol Use: Yes Hx Substance Use: No Preferred Language: Pakistani Communication Ability: Effective Preparation Operator Required: No Beliefs That Will Affect Care: None Current Living Situation: Spouse Other Information That Helps Us Care for You: No Feels Safe at Home: Yes Safety Concerns: Feels Safe At This Time Assistive Devices: CPAP Review of Systems Review of Systems: All systems reviewed & are unremarkable except as noted in HPI & below Physical Exam Physical Exam: General-Not in distress Head- atraumatic Eyes- PERRL. ENT- oropharynx clear Neck- supple, no JVD. Lungs- clear to auscultation no wheezing or crackles Heart- regular rhythm; no murmur, no gallop. Abdomen- normal bowel sounds, soft, nontender, no distension Extremities- no pretibial edema, no erythema seen Neuro- alert, oriented PERRL, no facial palsy; no dysarthria; moves extremities Skin- sacral region tender, no erythema seen, perrectal area dressing seen Results & Data Results & Data Vital Signs (Past 12 Hours) Vital Signs Temp Pulse Resp BP Pulse Ox O2 Del Method 09/07/24 01:02 108 H 09/07/24 01:00 115 H 26 H 124/63 90 Room Air 09/07/24 00:00 109 H 19 121/73 97 Room Air 09/06/24 23:51 112 H 18 121/73 98 Room Air 09/06/24 23:12 114 H 18 96/61 L 98 Room Air 09/06/24 23:12 113 H 96/61 L 09/06/24 23:09 99 09/06/24 23:03 96 09/06/24 23:00 36.8 C 09/06/24 22:45 98 09/06/24 22:40 99/62 L 09/06/24 21:54 96 09/06/24 21:33 119 H 16 97 09/06/24 21:06 122 H 21 118/68 98 09/06/24 20:51 120 H 09/06/24 20:18 136 H 19 98 Room Air 09/06/24 19:33 39.3 C H 132 H 18 123/76 98 Room Air Diagnostic Findings Laboratory Results WBC 18.65 K/ul (4.8-10.8) H 09/06/24 19:50 RBC 4.08 M/uL (4.20-5.40) L 09/06/24 19:50 Hgb 7.3 g/dl (12.0-16.0) L 09/06/24 19:50 Hct 25.0 % (37.0-47.0) L 09/06/24 19:50 MCV 61.3 fL (80.0-100.0) L 09/06/24 19:50 MCH 17.9 pg (25.0-34.0) L 09/06/24 19:50 MCHC 29.2 g/dL (32.0-36.0) L 09/06/24 19:50 RDW Std Deviation 42.8 fL (36.4-46.3) 09/06/24 19:50 RDW Coeff of Gladys 20.2 % (11.5-14.5) H 09/06/24 19:50 Plt Count 357 K/uL (130-400) 09/06/24 19:50 MPV 9.2 fL (9.4-12.4) L 09/06/24 19:50 Immature Gran % (Auto) 0.6 % 09/06/24 19:50 Neut % (Auto) 75.3 % 09/06/24 19:50 Lymph % (Auto) 12.3 % 09/06/24 19:50 Starr % (Auto) 11.3 % 09/06/24 19:50 Eos % (Auto) 0.3 % 09/06/24 19:50 Baso % (Auto) 0.2 % 09/06/24 19:50 Neut # (Auto) 14.05 K/uL (1.40-6.50) H 09/06/24 19:50 Lymph # (Auto) 2.30 K/uL (1.20-3.40) 09/06/24 19:50 Starr # (Auto) 2.10 K/uL (0.11-0.59) H 09/06/24 19:50 Eos # (Auto) 0.05 K/uL (0.00-0.50) 09/06/24 19:50 Baso # (Auto) 0.03 K/uL (0.00-0.20) 09/06/24 19:50 Immature Gran # (Auto) 0.12 K/uL (0.01-0.20) 09/06/24 19:50 Anisocytosis Present 09/06/24 19:50 Microcytosis Present 09/06/24 19:50 Tear Drop Cells 1+ 09/06/24 19:50 Stomatocytes 1+ 09/06/24 19:50 Sodium 134 mmol/L (136-145) L 09/06/24 19:50 Potassium 3.2 mmol/L (3.5-5.1) L 09/06/24 19:50 Chloride 98 mmol/L (98-107) 09/06/24 19:50 Carbon Dioxide 27 mmol/L (21-32) 09/06/24 19:50 Anion Gap 9 (3-11) 09/06/24 19:50 BUN 13 mg/dl (6-23) 09/06/24 19:50 Creatinine 0.92 mg/dl (0.6-1.2) 09/06/24 19:50 Est Cr Clr Drug Dosing 124.8 ml/min 09/06/24 19:50 eGFR 77.77 09/06/24 19:50 BUN/Creatinine Ratio 14.1 (10-20) 09/06/24 19:50 Glucose 125 mg/dl (70-99(Fasting)) H 09/06/24 19:50 Lactate 1.2 mmol/L (0.4-2.0) 09/06/24 20:37 Calcium 9.3 mg/dl (8.6-10.3) 09/06/24 19:50 Magnesium 1.5 mg/dl (1.7-2.4) L 09/06/24 19:50 Total Bilirubin 0.6 mg/dl (0.2-1.0) 09/06/24 19:50 Direct Bilirubin 0.1 mg/dl (0-0.2) 09/06/24 19:50 AST 15 U/L (13-39) 09/06/24 19:50 ALT 11 U/L (7-52) 09/06/24 19:50 Alkaline Phosphatase 85 U/L (34-104) 09/06/24 19:50 Troponin I High Sens 6.4 pg/ml (0-14) 09/06/24 19:50 Total Protein 7.5 gm/dl (6.0-8.3) 09/06/24 19:50 Albumin 3.7 gm/dl (3.4-5.0) 09/06/24 19:50 Procalcitonin 0.03 ng/ml (0-0.5) 09/06/24 19:50 Impressions Abdomen/Pelvis CT 09/06/24 20:18 Exam(s): CT ABDOMEN + PELVIS With Contrast IV Amt: 115 ml optiray 320 EXAM: CT Abdomen and Pelvis With Intravenous Contrast CLINICAL HISTORY: Reason for exam: possible buttock abscess vs pilonidal. TECHNIQUE: Axial computed tomography images of the abdomen and pelvis with intravenous contrast. CTDI is 28.14 mGy and DLP is 1739.04 mGy-cm. Automated exposure control was utilized for the study. A dose lowering technique was utilized adhering to the principles of ALARA. CONTRAST: Patient received 115 ml optiray 320 of IV contrast COMPARISON: No relevant prior studies available. FINDINGS: Lung bases: Unremarkable. No mass. No consolidation. ABDOMEN: Liver: Unremarkable. No mass. Gallbladder and bile ducts: Unremarkable. No calcified stones. No ductal dilation. Pancreas: Unremarkable. No mass. No ductal dilation. Spleen: Unremarkable. No splenomegaly. Adrenals: Unremarkable. No mass. Kidneys and ureters: Unremarkable. No solid mass. No hydronephrosis. Stomach and bowel: Unremarkable. No obstruction. No mucosal thickening. PELVIS: Appendix: No findings to suggest acute appendicitis. Bladder: Unremarkable. No mass. Reproductive: Fibroid uterus. ABDOMEN and PELVIS: Intraperitoneal space: Unremarkable. No free air. No significant fluid collection. Bones/joints: No acute fracture. No dislocation. Soft tissues: 2.6 x 4.8 cm left perianal abscess. Vasculature: Unremarkable. No abdominal aortic aneurysm. Lymph nodes: Unremarkable. No enlarged lymph nodes. IMPRESSION: 2.6 x 4.8 cm left perianal abscess Fibroid uterus Electronically signed by: Rory Lilly MD 09/06/24 22:42 PM Chest X-Ray 09/06/24 20:18 Exam(s): XR CXR 1 VIEW EXAM: XR Chest, 1 View CLINICAL HISTORY: Reason for exam: Sepsis. TECHNIQUE: Frontal view of the chest. COMPARISON: No relevant prior studies available. FINDINGS: Lungs: Unremarkable. No consolidation. Pleural space: Unremarkable. No pneumothorax. Heart: Unremarkable. No cardiomegaly. Mediastinum: Unremarkable. Normal mediastinal contour. Bones/joints: Unremarkable. No acute fracture. IMPRESSION: Normal chest x-ray. Electronically signed by: Rory Lilly MD 09/06/24 21:38 PM ECG Additional Comments: ECG. Sinus tachycardia rate of 122. QTc 456 Code Status & VTE Plan VTE Prophylaxis Plan VTE Prophylaxis will be ordered: Yes
[2024-09-07] MEDS ORDERED: ACETAMINOPHEN 1,000 MG/100 ML VIAL IV PRN (04:27)
[2024-09-07] MEDS ORDERED: FLUTICASONE PROPIONATE NA SPR 16 GM BTL PRN (04:27)
[2024-09-07] MEDS ORDERED: POLYETHYLENE (MIRALAX) 17 GM PACK PO PRN (04:27)
[2024-09-07] MEDS ORDERED: NITROGLYCERIN SL 0.4 MG/TAB TAB SL PRN (04:27)
[2024-09-07] MEDS: SODIUM CHLORIDE 0.9% 1,000 ML IV SCH (04:53)
[2024-09-07] MEDS: VANCOMYCIN HCL 1,500 MG in SODIUM CHLORIDE 0.9% 500 ML IV SCH (05:11)
[2024-09-07] MEDS: KETOROLAC TROMETHAMINE 15 MG/ML VIAL IV ONE (05:54)
[2024-09-07] MEDS: PIPERACILLIN/TAZOBACTAM 4.5 GM/100 ML BAG IV SCH (05:56)
[2024-09-07 07:42] LABS: Hematocrit (blood only) 21.5 % (37.0-47.0); Hemoglobin 6.3 g/dl (12.0-16.0); Mean Corpuscular Hemoglobin 18.2 pg (25.0-34.0); Mean Corpuscular Volume 62.1 fL (80.0-100.0); Platelet Count 290 K/uL (130-400); RDW Standard Deviation 43.4 fL (36.4-46.3); Red Blood Count 3.46 M/uL (4.20-5.40); White Blood Count 17.55 K/ul (4.8-10.8)
[2024-09-07] MEDS ORDERED: SODIUM CHLORIDE 0.9% 100 ML IV PRN (07:49)
[2024-09-07] MEDS: ESCITALOPRAM OXALATE 10 MG TAB PO SCH (07:52)
[2024-09-07 07:54] LABS: Anion Gap 5 (3-11); Anisocytosis Present; Blood Urea Nitrogen 10 mg/dl (6-23); Calcium 8.2 mg/dl (8.6-10.3); Carbon Dioxide 28 mmol/L (21-32); Chloride 104 mmol/L (98-107); Creatinine Clr Calc Pharmacy 144.0 ml/min; Glucose 119 mg/dl (70-99(Fasting)); Hypochromasia Present; Immature Granulocytes # (auto) 0.13 K/uL (0.01-0.20); Immature Granulocytes % (auto) 0.7 %; Microcytosis Present; Ovalocytes 1+; Polychromasia 1+; Potassium 3.2 mmol/L (3.5-5.1); Sodium 137 mmol/L (136-145); Tear Drop Cells 1+
[2024-09-07 07:55] LABS: Iron < 10 mcg/dl (35-150); Total Iron Binding Cap Calc 400 mcg/dl (250-450); Transferrin 286 mg/dl (200-360)
[2024-09-07] MEDS: ACETAMINOPHEN 325 MG TAB PO PRN (07:57)
[2024-09-07 08:19] LABS: Folate (Folic Acid),Ser orPlas 18.87 ng/ml (>5.38)
[2024-09-07 08:20] LABS: Vitamin B12 351.0 pg/ml (180-914)
--- NOTE | 2024-09-07 09:52 | Pharmacy Report ---
Pharmacy PK ABX Note - Date of Service September 07, 2024 - Assessment and Plan Assessment * 48 year old F receiving pip/tazo and vancomycin for treatment of perianal abscess * Pertinent microbiologic data includes: blood cultures pending Plan Vancomycin * Loading dose: 2750 mg IV x 1 * Maintenance dose: 1500 mg IV every 12 hours * Regimen is predicted to achieve target AUC/RAJANI of 400-600 mg/L.hr * Random level ordered for 09/08 AM Pharmacy will continue to follow and will adjust dose/frequency as necessary. Thank you. Pharmacy has transitioned to AUC monitoring for vancomycin. AUC/RAJANI is the preferred PK/PD target and is associated with decreased risk of nephrotoxicity compared to traditional trough targets.
--- NOTE | 2024-09-07 10:01 | Communication Note ---
Date of Service: September 07, 2024 The patient is a 48-year-old female who presented to the ED on 09/07/2024 with complaints of a recent fall and dizziness. Found to have perianal abscess with complaints of fevers. Perianal abscess: General Surgery consulted, continue IV Vanco/Zosyn N.p.o. until reevaluation from surgery this a.m. to determine the need for I&D in the OR Blood cultures pending, monitor fever curve, WBC slowly improving, 17 this a.m. If no indication for OR, can likely DC in the next 24-48 hours if blood cultures remain negative and patient remains fever free x 24 hours Hypomagnesemia/hypokalemia: Continue to monitor and replete as needed Anemiahistory of CAROL ANN Reports remote history of CAROL ANN, previously being on iron supplementation Baseline hemoglobin around 9, likely a dilutional component with IV fluids and secondary to infection No gross melena noted, hemoglobin 6.3 today, s/p 2 units PRBC ordered Serial H/H, hemodynamically stable, continue to monitor, may need outpatient heme-onc evaluation for possible iron transfusions Hx HTN: Continue Coreghold losartan Hx depression: Continue Wellbutrin/Lexapro A total of 35 minutes was spent on chart review/reviewing diagnostic data/facilitating plan of care Full code DVT prophylaxis: SCDs; avoid AC with anemia Attending addendum: Patient was seen and examined at bedside as a follow-up of perianal abscess. General surgery on board. Continue with IV Zosyn. Blood culture pending. Monitor and replete electrolytes. Patient also noted to have symptomatic iron deficiency anemia, declines using any iron supplement as an outpatient. Baseline hemoglobin is pretty lower around 9 and patient denies any blood in the stool or black stool. Admitting Hb 7.3, f/u Hb is 6.3 which could be dilutional component as well. Will transfuse 1 unit of blood and recheck hemoglobin to determine further PRBC need. Patient reports getting colonoscopy about a year ago and recalls no abnormal pathology/being told the need for next C-scope in 5 years. Avoid NSAIDs, await FOBT Pt reports very occasionally using NSAIDs for headache. Pt denies epigastric pain or burning sensation. c/w home BP meds w/ caution, agree w/ holding ACEi and Chlorthalidone for now. total time spent independently: 18 minutes. I have seen and examined the patient and have discussed the case with the provider above. I agree with the assessment and plan as stated.
[2024-09-07] MEDS: POTASSIUM CHLORIDE / WTR 10 MEQ/100 ML PLCT IV SCH (11:06)
[2024-09-07 11:21] LABS: Hemoglobin A1C 6.0 % (4.5-5.6)
[2024-09-07 14:00] LABS: Appearance Urine Clear (Clear); Glucose Urine UA Negative (Negative)
[2024-09-07] MEDS: MELATONIN 3 MG TAB PO PRN (22:58)
[2024-09-08 02:13] LABS: Hematocrit (blood only) 26.7 % (37.0-47.0); Hemoglobin 8.0 g/dl (12.0-16.0); Immature Granulocytes # (auto) 0.09 K/uL (0.01-0.20); Immature Granulocytes % (auto) 0.6 %; Mean Corpuscular Hemoglobin 19.5 pg (25.0-34.0); Mean Corpuscular Volume 65.0 fL (80.0-100.0); RDW Standard Deviation 50.7 fL (36.4-46.3); Red Blood Count 4.11 M/uL (4.20-5.40); White Blood Count 15.66 K/ul (4.8-10.8)
[2024-09-08 03:22] LABS: Anisocytosis Present; Hypochromasia Present; Microcytosis Present; Platelet Count 319 K/uL (130-400); Polychromasia 1+
[2024-09-08 06:02] LABS: Alanine Aminotransferase 10.0 U/L (7-52); Albumin Globulin Ratio 1.0 (0.9-2); Alkaline Phosphatase 69.0 U/L (34-104); Anion Gap 5.0 (3-11); Bilirubin,Total 0.7 mg/dl (0.2-1.0); Blood Urea Nitrogen 7.0 mg/dl (6-23); Calcium 8.1 mg/dl (8.6-10.3); Carbon Dioxide 26.0 mmol/L (21-32); Chloride 106.0 mmol/L (98-107); Creatinine Clr Calc Pharmacy 172.0 ml/min; Globulin 3.1 gm/dl (2.5-4.0); Glucose 96.0 mg/dl (70-99(Fasting)); Magnesium 2.0 mg/dl (1.7-2.4); Potassium 3.4 mmol/L (3.5-5.1); Sodium 137.0 mmol/L (136-145); Total Protein 6.2 gm/dl (6.0-8.3)
[2024-09-08] MEDS: VANCOMYCIN LEVEL ONE (06:17)
--- NOTE | 2024-09-08 07:28 | Electrocardiogram Report ---
Test Reason : Blood Pressure : */* mmHG Vent. Rate : 122 BPM Atrial Rate : 122 BPM P-R Int : 150 ms QRS Dur : 94 ms QT Int : 320 ms P-R-T Axes : 49 21 27 degrees QTcB Int : 456 ms Sinus tachycardia Otherwise normal ECG When compared with ECG of 01-Mar-2022 07:08, Borderline criteria for Anterior infarct are no longer Present Confirmed by Jair Erickson ([id number]) on 09/08/2024 7:28:27 AM Referred By: REFERRED SELF Confirmed By: Jair Erickson
[2024-09-08] MEDS: POTASSIUM CHLORIDE CRTAB 20 MEQ TABCR PO STA (07:50)
--- NOTE | 2024-09-08 08:27 | Hospitalist Progress Note ---
Date of Service September 08, 2024 Assessment & Plan (1) Acute hypokalemia: (2) High blood pressure: (3) Abscess, perianal: (4) Sepsis: (5) Perianal abscess: (6) Hypertensive urgency: Plan The patient is a 48-year-old female who presented to the ED on 09/07/2024 with complaints of a recent fall and dizziness. Found to have perianal abscess with complaints of fevers. Perianal abscess: General Surgery consulted, continue IV Vanco/Zosyn; blood cultures neg x 24 hours. No indication for formal I&D, currently draining; monitor fever curve, WBC slowly improving, 15 -IVF dc'd - consider adc in the next 24-48 hours if continues to improve. Hypomagnesemia/hypokalemia: Continue to monitor and replete as needed Anemiahistory of CAROL ANN Reports remote history of CAROL ANN, previously being on iron supplementation Baseline hemoglobin around 9, likely a dilutional component with IV fluids and secondary to infection No gross melena noted, hemoglobin 8 today, s/p 2 units PRBC. Serial H/H, hemodynamically stable, continue to monitor, may need outpatient heme-onc evaluation for possible iron transfusions Prediabetes: A1c 6, recheck in 3 months, encouraged improving diet and exercise Hx HTN: Continue Coreghold losartan Hx depression: Continue Wellbutrin/Lexapro A total of 35 minutes was spent on chart review/reviewing diagnostic data/facilitating plan of care Full code DVT prophylaxis: SCDs; avoid AC with anemia Admission and Anticipated Discharge Date Admission Date: September 07, 2024 Supervising Physician Co-Signing Physician Notes Patient was seen and examined at bedside as a follow-up of perianal abscess. General surgery on board. Continue with IV Zosyn + vanc. Blood culture pending . Monitor and replete electrolytes. Patient also noted to have symptomatic iron deficiency anemia, declines using any iron supplement as an outpatient due to constipation issues. Baseline hemoglobin is pretty lower around 9 and patient denies any blood in the stool or black stool. Admitting Hb 7.3, f/u Hb is 6.3 , s/p 2 unit PRBC, Hb around 7.5 now, monitor HnH. Patient reports getting colonoscopy about a year ago and recalls no abnormal pathology/being told the need for next C-scope in 5 years. Pt advised to utilize OTC laxatives/stool softeners to help mitigate constipa tion effect of iron pills, if not she could coordinate w/ her PCP office for iv iron. She has been educated on this. currently due to active infection will not do iv iron. Avoid NSAIDs, await FOBT Pt reports very occasionally using NSAIDs for headache. Pt denies epigastric pain or burning sensation. c/w home BP meds w/ caution, agree w/ holding ACEi and Chlorthalidone for now. BP low normal. total time spent independently: 20 minutes. I have seen and examined the patient and have discussed the case with the provider above. I agree with the assessment and plan as stated. Subjective Patient seen and examined. no apparent distress. Reports feeling better this morning. Reports some drainage overnight. Denies any fevers. Review of Systems Review of Systems: All systems reviewed & are unremarkable except as noted in HPI & below Physical Exam Constitutional: WD/WN, vitals as above Eyes: PERRL, conjunctivae normal, anicteric sclerae ENMT: external ear and nose normal, oropharynx normal Neck: trachea midline, no thyromegaly Respiratory: normal respiratory effort, lungs clear to auscultation Cardiovascular: RRR, no murmur, no edema Gastrointestinal (Abdomen): normal bowel sounds, soft, nontender, no hepatosplenomegaly Musculoskeletal: no cyanosis or clubbing, extremities motor strength 5/5 Skin: no rashes, warm and dry (perianal abscess - actively draining ) Neurologic: PERRL, EOMI, accommodation nl, no face palsy, no dysarthria Psychiatric: A+Ox3, euthymic affect Lymphatic: no cervical or axillary lymphadenopathy Results & Data Results & Data Vital Signs (Past 12 Hours) Vital Signs Temp Pulse Pulse Resp BP BP Pulse Ox 09/08/24 08:08 36.7 C 86 20 100/59 L 99 09/08/24 07:02 87 09/08/24 04:27 09/08/24 02:48 37.3 C 98 H 18 132/81 99 09/08/24 02:25 93 H 20 99 09/07/24 23:47 108 H 22 97 09/07/24 22:25 37.3 C 106 H 18 125/80 99 09/07/24 21:46 107 H Pulse Ox O2 Del Method O2 Del Method 09/08/24 08:08 Room Air 09/08/24 07:02 09/08/24 04:27 98 CPAP 09/08/24 02:48 Room Air 09/08/24 02:25 09/07/24 23:47 09/07/24 22:25 Room Air 09/07/24 21:46 Diagnostic Findings Laboratory Results WBC 15.66 K/ul (4.8-10.8) H 09/08/24 01:43 RBC 4.11 M/uL (4.20-5.40) L 09/08/24 01:43 Hgb 8.0 g/dl (12.0-16.0) L 09/08/24 01:43 Hct 26.7 % (37.0-47.0) L 09/08/24 01:43 MCV 65.0 fL (80.0-100.0) L 09/08/24 01:43 MCH 19.5 pg (25.0-34.0) L 09/08/24 01:43 MCHC 30.0 g/dL (32.0-36.0) L 09/08/24 01:43 RDW Std Deviation 50.7 fL (36.4-46.3) H 09/08/24 01:43 RDW Coeff of Gladys 22.3 % (11.5-14.5) H 09/08/24 01:43 Plt Count 319 K/uL (130-400) 09/08/24 01:43 MPV 9.2 fL (9.4-12.4) L 09/08/24 01:43 Immature Gran % (Auto) 0.6 % 09/08/24 01:43 Neut % (Auto) 73.3 % 09/08/24 01:43 Lymph % (Auto) 16.2 % 09/08/24 01:43 [place] % (Auto) 7.7 % 09/08/24 01:43 Eos % (Auto) 1.9 % 09/08/24 01:43 Baso % (Auto) 0.3 % 09/08/24 01:43 Neut # (Auto) 11.49 K/uL (1.40-6.50) H 09/08/24 01:43 Lymph # (Auto) 2.53 K/uL (1.20-3.40) 09/08/24 01:43 [place] # (Auto) 1.21 K/uL (0.11-0.59) H 09/08/24 01:43 Eos # (Auto) 0.29 K/uL (0.00-0.50) 09/08/24 01:43 Baso # (Auto) 0.05 K/uL (0.00-0.20) 09/08/24 01:43 Immature Gran # (Auto) 0.09 K/uL (0.01-0.20) 09/08/24 01:43 Polychromasia 1+ 09/08/24 01:43 Hypochromasia Present 09/08/24 01:43 Anisocytosis Present 09/08/24 01:43 Microcytosis Present 09/08/24 01:43 Tear Drop Cells 1+ 09/07/24 07:16 Ovalocytes 1+ 09/07/24 07:16 Stomatocytes 1+ 09/06/24 19:50 Sodium 137 mmol/L (136-145) 09/08/24 05:24 Potassium 3.4 mmol/L (3.5-5.1) L 09/08/24 05:24 Chloride 106 mmol/L (98-107) 09/08/24 05:24 Carbon Dioxide 26 mmol/L (21-32) 09/08/24 05:24 Anion Gap 5 (3-11) 09/08/24 05:24 BUN 7 mg/dl (6-23) 09/08/24 05:24 Creatinine 0.67 mg/dl (0.6-1.2) 09/08/24 05:24 Est Cr Clr Drug Dosing 172.0 ml/min 09/08/24 05:24 eGFR 109.10 09/08/24 05:24 BUN/Creatinine Ratio 10.4 (10-20) 09/08/24 05:24 Glucose 96 mg/dl (70-99(Fasting)) 09/08/24 05:24 Estimat Average Glucose 126 mg/dl 09/07/24 10:09 Hemoglobin A1c 6.0 % (4.5-5.6) H 09/07/24 10:09 Lactate 1.2 mmol/L (0.4-2.0) 09/06/24 20:37 Calcium 8.1 mg/dl (8.6-10.3) L 09/08/24 05:24 Phosphorus 3.0 mg/dl (2.5-4.9) 09/07/24 07:16 Magnesium 2.0 mg/dl (1.7-2.4) 09/08/24 05:24 Iron < 10 mcg/dl (35-150) L 09/07/24 07:16 TIBC 400 mcg/dl (250-450) 09/07/24 07:16 Transferrin 286 mg/dl (200-360) 09/07/24 07:16 Transferrin % Sat TNP 09/07/24 07:16 Total Bilirubin 0.7 mg/dl (0.2-1.0) 09/08/24 05:24 Direct Bilirubin 0.1 mg/dl (0-0.2) 09/06/24 19:50 AST 13 U/L (13-39) 09/08/24 05:24 ALT 10 U/L (7-52) 09/08/24 05:24 Alkaline Phosphatase 69 U/L (34-104) 09/08/24 05:24 Troponin I High Sens 6.4 pg/ml (0-14) 09/06/24 19:50 Total Protein 6.2 gm/dl (6.0-8.3) 09/08/24 05:24 Albumin 3.1 gm/dl (3.4-5.0) L 09/08/24 05:24 Globulin 3.1 gm/dl (2.5-4.0) 09/08/24 05:24 Albumin/Globulin Ratio 1.0 (0.9-2) 09/08/24 05:24 Vitamin B12 351 pg/ml (180-914) 09/07/24 07:16 Folate 18.87 ng/ml (>5.38) 09/07/24 07:16 Procalcitonin 0.03 ng/ml (0-0.5) 09/06/24 19:50 Urine Color Yellow 09/07/24 13:20 Urine Appearance Clear (Clear) 09/07/24 13:20 Urine pH 6.0 (4.5-7.5) 09/07/24 13:20 Ur Specific [place] 1.040 (1.000-1.030) H 09/07/24 13:20 Urine Protein Negative (Negative) 09/07/24 13:20 Urine Glucose (UA) Negative (Negative) 09/07/24 13:20 Urine Ketones Trace (Negative) H 09/07/24 13:20 Urine Blood Negative (Negative) 09/07/24 13:20 Urine Nitrite Negative (Negative) 09/07/24 13:20 Urine Bilirubin Negative (Negative) 09/07/24 13:20 Urine Urobilinogen Negative (Negative) 09/07/24 13:20 Ur Leukocyte Esterase Negative (Negative) 09/07/24 13:20 Urine Comment 09/07/24 13:20 Random Vancomycin 8.0 mcg/ml (10-20) L 09/08/24 05:24 Blood Type O Positive 09/07/24 08:02 Blood Type Recheck O Positive 09/07/24 09:20 Antibody Screen NEGATIVE 09/07/24 08:02 Crossmatch See Detail 09/07/24 08:02 Impressions Abdomen/Pelvis CT 09/06/24 20:18 Exam(s): CT ABDOMEN + PELVIS With Contrast IV Amt: 115 ml optiray 320 EXAM: CT Abdomen and Pelvis With Intravenous Contrast CLINICAL HISTORY: Reason for exam: possible buttock abscess vs pilonidal. TECHNIQUE: Axial computed tomography images of the abdomen and pelvis with intravenous contrast. CTDI is 28.14 mGy and DLP is 1739.04 mGy-cm. Automated exposure control was utilized for the study. A dose lowering technique was utilized adhering to the principles of ALARA. CONTRAST: Patient received 115 ml optiray 320 of IV contrast COMPARISON: No relevant prior studies available. FINDINGS: Lung bases: Unremarkable. No mass. No consolidation. ABDOMEN: Liver: Unremarkable. No mass. Gallbladder and bile ducts: Unremarkable. No calcified stones. No ductal dilation. Pancreas: Unremarkable. No mass. No ductal dilation. Spleen: Unremarkable. No splenomegaly. Adrenals: Unremarkable. No mass. Kidneys and ureters: Unremarkable. No solid mass. No hydronephrosis. Stomach and bowel: Unremarkable. No obstruction. No mucosal thickening. PELVIS: Appendix: No findings to suggest acute appendicitis. Bladder: Unremarkable. No mass. Reproductive: Fibroid uterus. ABDOMEN and PELVIS: Intraperitoneal space: Unremarkable. No free air. No significant fluid collection. Bones/joints: No acute fracture. No dislocation. Soft tissues: 2.6 x 4.8 cm left perianal abscess. Vasculature: Unremarkable. No abdominal aortic aneurysm. Lymph nodes: Unremarkable. No enlarged lymph nodes. IMPRESSION: 2.6 x 4.8 cm left perianal abscess Fibroid uterus Electronically signed by: Rory Lilly MD 09/06/24 22:42 PM Chest X-Ray 09/06/24 20:18 Exam(s): XR CXR 1 VIEW EXAM: XR Chest, 1 View CLINICAL HISTORY: Reason for exam: Sepsis. TECHNIQUE: Frontal view of the chest. COMPARISON: No relevant prior studies available. FINDINGS: Lungs: Unremarkable. No consolidation. Pleural space: Unremarkable. No pneumothorax. Heart: Unremarkable. No cardiomegaly. Mediastinum: Unremarkable. Normal mediastinal contour. Bones/joints: Unremarkable. No acute fracture. IMPRESSION: Normal chest x-ray. Electronically signed by: Rory Lilly MD 09/06/24 21:38 PM
--- NOTE | 2024-09-08 08:27 | Surgery Progress Note ---
Date of Service September 08, 2024 Assessment & Plan (1) Abscess, perianal: Plan: Clinically improved. Continues to drain. Will need oral antibiotics. Follow- up with me in 1 to 2 weeks at the office Admission and Anticipated Discharge Date Admission Date: September 07, 2024 Subjective Starting to feel much better. Pain much improved. Continues to have some drainage Physical Exam Physical Exam: Comfortable no acute distress The abscess site is much smaller and much less firm. Continues to have purulent drainage. Definitely improved since admission Results & Data Vital Signs (Past 12 Hours) Vital Signs Temp Pulse Pulse Resp BP BP Pulse Ox 09/08/24 08:08 36.7 C 86 20 100/59 L 99 09/08/24 07:02 87 09/08/24 04:27 09/08/24 02:48 37.3 C 98 H 18 132/81 99 09/08/24 02:25 93 H 20 99 09/07/24 23:47 108 H 22 97 09/07/24 22:25 37.3 C 106 H 18 125/80 99 09/07/24 21:46 107 H Pulse Ox O2 Del Method O2 Del Method 09/08/24 08:08 Room Air 09/08/24 07:02 09/08/24 04:27 98 CPAP 09/08/24 02:48 Room Air 09/08/24 02:25 09/07/24 23:47 09/07/24 22:25 Room Air 09/07/24 21:46 PG Care Time/CCT Total # of Minutes Spent Total Time Spent with Patient: Total time spent is greater than 50% in coordination of care (as documented) at patient's floor/unit and/or counseling patient: Coding Level of Care Code 97040 SUB INP/OBS CARE 03/09MIN Diagnoses Abscess, perianal K61.0
--- NOTE | 2024-09-08 09:35 | Pharmacy Report ---
Pharmacy PK ABX Note - Date of Service September 08, 2024 - Assessment and Plan Assessment * 48 year old F receiving pip/tazo and vancomycin for treatment of perianal abscess * Pertinent microbiologic data includes: blood cultures NGTD Plan Vancomycin * Target AUC/RAJANI of 400-600 mg/L.hr * Trough of 8.0 mcg/mL this AM associated with a subtherapeutic AUC of 391 mg/L.hr * Will increase dose, but not too aggressively 2nd BMI * Will recheck early level to assess for accumulation 2nd BMI * Increase vancomycin to 1250 mg IV every 8 hours * Random level ordered for 09/09 @ 1330 Pharmacy will continue to follow and will adjust dose/frequency as necessary. Thank you. Pharmacy has transitioned to AUC monitoring for vancomycin. AUC/RAJANI is the preferred PK/PD target and is associated with decreased risk of nephrotoxicity compared to traditional trough targets.
[2024-09-08] MEDS: VANCOMYCIN HCL 1,250 MG in SODIUM CHLORIDE 0.9% 250 ML IV SCH (13:22)
[2024-09-08] MEDS: ALBUTEROL HFA 8 GM INHALER INH PRN (19:47)
[2024-09-08] MEDS ORDERED: COUGH DROP (SUGAR FREE) LOZ 24 LOZ/1 BOX BUCCAL PRN (19:59)
[2024-09-09 08:07] LABS: Hematocrit (blood only) 24.4 % (37.0-47.0); Hemoglobin 7.3 g/dl (12.0-16.0); Immature Granulocytes # (auto) 0.05 K/uL (0.01-0.20); Immature Granulocytes % (auto) 0.6 %; Mean Corpuscular Hemoglobin 19.8 pg (25.0-34.0); Mean Corpuscular Volume 66.3 fL (80.0-100.0); RDW Standard Deviation 52.1 fL (36.4-46.3); Red Blood Count 3.68 M/uL (4.20-5.40); White Blood Count 8.83 K/ul (4.8-10.8)
[2024-09-09 08:14] LABS: Platelet Count 305 K/uL (130-400)
[2024-09-09 08:25] VITALS: RESP 18; TEMP 97.9
[2024-09-09 08:34] LABS: Alanine Aminotransferase 11.0 U/L (7-52); Albumin Globulin Ratio 1.2 (0.9-2); Alkaline Phosphatase 69.0 U/L (34-104); Anion Gap 4.0 (3-11); Bilirubin,Total 0.4 mg/dl (0.2-1.0); Blood Urea Nitrogen 6.0 mg/dl (6-23); Calcium 8.4 mg/dl (8.6-10.3); Carbon Dioxide 28.0 mmol/L (21-32); Chloride 105.0 mmol/L (98-107); Creatinine Clr Calc Pharmacy 180.3 ml/min; Globulin 2.8 gm/dl (2.5-4.0); Glucose 99.0 mg/dl (70-99(Fasting)); Magnesium 1.9 mg/dl (1.7-2.4); Potassium 3.3 mmol/L (3.5-5.1); Sodium 137.0 mmol/L (136-145); Total Protein 6.1 gm/dl (6.0-8.3)
[2024-09-09 08:42] LABS: Anisocytosis Present; Hypochromasia Present; Microcytosis Present; Polychromasia 1+
[2024-09-09 12:23] VITALS: BP 137/93; O2SAT 95
[2024-09-09] MEDS: POTASSIUM CHLORIDE CRTAB 20 MEQ TABCR PO STA (12:51)
[2024-09-09] MEDS: VANCOMYCIN LEVEL ONE (14:47)
[2024-09-09 15:30] LABS: Hematocrit (blood only) 25.6 % (37.0-47.0); Hemoglobin 7.5 g/dl (12.0-16.0)
--- NOTE | 2024-09-09 15:34 | Discharge Summary ---
Discharge Summary Date of Service September 09, 2024 Principal Dx & Hospital Course #1 = Principal Diagnosis (1) Sepsis: (2) Abscess, perianal: (3) Symptomatic anemia: (4) Acute hypokalemia: (5) Hypomagnesemia: (6) Hypertension: Plan 42 year old female with PMH significant for allergic rhinitis, DAYRON, hypertension, sinus tachycardia, GERD, vitamin D deficiency, CAROL ANN, lumbar DDD and lumbar spinal stenosis who presented to the ED on 09/07/2024 with complaints of a recent fall and dizziness and was admitted for sepsis secondary to perianal abscess. Sepsis secondary to perianal abscess Presented with leukocytosis (18K), fevers (39.3), and tachycardia Negative lactate and procalcitonin on admission Blood cultures prelim no growth after [address] abdomen revealed perianal abscess Surgery consulted and recommended conservative measures with IV abx, no surgery Patient discharged to home on oral antibiotics and is to follow up with Surgery outpatient in 1-2 weeks Symptomatic anemia CAROL ANN Dizziness on presentation likely secondary to anemia Reports remote history of CAROL ANN, previously being on iron supplementation Hemoglobin on admission 7.3 (baseline around 9) and dropped to 6.3 requiring 2 units PRBC Hemodynamics and Hgb stable on day of discharge at 7.5 FOBT negative Iron <10, TIBC 400, transferrin 286 Vitamin B12 351, folate 18 Patient discharged on vitamin B12, folic acid, ferrous sulfate and instructed to have levels checked outpatient in 3 months Consider outpatient heme evaluation for possible iron transfusions Hypokalemia K 3.2 on admission (3.3 on day of discharge) Recommended foods high in potassium Consider recheck BMP and potassium supplement if no improvement with dietary changes Prediabetes A1C 6, recheck in 3 months, encouraged improving diet and exercise Hypertension Blood pressure on lower side of normal while inpt Held chlorthalidone and olmesartan - advised continuing to hold until PCP follow up Sinus tachycardia Continue Coreg Depression: Continue Wellbutrin and Lexapro Patient seen in collaboration with Dr Rosa. Please see addendum. Notes For Next Care Provider 42 year old female with significant PMH who was admitted at [facility] from 09/07- 09/09/2024 for sepsis secondary to perianal abscess. Surgery was consulted and recommended conservative treatment with antibiotics and will follow up outpatient in 1-2 weeks. Patient also found to have symptomatic anemia with Hgb dropping to 6.3 requiring 2 units of PRBCs. Patient was started on supplements at time of discharge and should have anemia labs drawn in about 3 months. Medication Changes From Visit Augmentin 875mg by mouth twice daily starting tonight until 09/16/2024 Folate 1mg by mouth daily Vitamin B12 1000mcg by mouth daily Iron (ferrous sulfate) 325mg by mouth daily Hold olmesartan and chlorthalidone until follow up with PCP Admission HPI Per Admitting Provider 48-year-old female with past medical history significant for obstructive sleep apnea on CPAP, hypertension, morbid obesity, GERD, iron deficiency, degenerative disc disease, spinal stenosis lumbar region, tobacco disorder, presents with dizziness and recent fall on the back and drainage from the perineal region. Patient was feeling dizzy. She fell from the steps couple of days ago and landed on her buttocks. Did not hit her head. No loss of consciousness. After that was able to ambulate okay. Today she noticed drainage from her perirectal area. And today she also had fever. Denies any bloody stools or black stools. No heavy menses. Denies chest pain or shortness of breath. No cough. No heada rina or runny nose or sore throat. Past medical history. As mentioned above. Past surgical history. Colonoscopy. Colposcopy. Injection of lumbosacral spine. Neck spine fusion surgery. Reduction of breast bilateral. Social history. . Smoked 1 pack a day for 24 years. Alcohol every 2 to 3 weeks. No drug use. Family history. Sister had autoimmune disease. States sister has fibromyalgia. Hypertension. Lupus. Maternal aunt had ovarian cancer. Admission Exam Per Admitting Provider General-Not in distress Head- atraumatic Eyes- PERRL. ENT- oropharynx clear Neck- supple, no JVD. Lungs- clear to auscultation no wheezing or crackles Heart- regular rhythm; no murmur, no gallop. Abdomen- normal bowel sounds, soft, nontender, no distension Extremities- no pretibial edema, no erythema seen Neuro- alert, oriented PERRL, no facial palsy; no dysarthria; moves extremities Skin- sacral region tender, no erythema seen, perrectal area dressing seen Discharge Exam General/Psych: WD/WN, sitting up in bed, NAD, conversing easily Head: normocephalic, atraumatic Eyes: normal inspection, PERRL, conjunctivae pink ENT: external ear and nose normal, oropharynx normal Neck: normal visual inspection, trachea midline Respiratory: normal respiratory effort, lungs clear to auscultation, no wheeze/rales/rhonchi, no accessory muscle use Cardiovascular: regular rate and rhythm, no murmur/rub/gallop, no JVD Extremities: no cyanosis or clubbing, normal peripheral pulses, no BLE edema Abdomen/GI: normal bowel sounds, soft, nontender Neurologic/MSK: A+Ox3, motor strength 5/5, moves all extremities Skin: no rashes, normal color, warm and dry Updated Medication List Medication Instructions Recorded Confirmed Type albuterol sulfate 90 mcg/actuation 2 puff inhalation QID PRN 09/06/24 09/06/24 History aerosol inhaler Shortness Of Breath Or Wheezing bupropion HCl 300 mg 24 hr tablet, 300 mg PO DAILY 09/06/24 09/06/24 History extended release carvedilol 12.5 mg tablet 12.5 mg PO QAM 09/06/24 09/06/24 History chlorthalidone 25 mg tablet 25 mg PO DAILY 09/06/24 09/06/24 History clindamycin phosphate 1 % lotion 1 applic topical BID PRN NEEDED 09/06/24 09/06/24 History escitalopram oxalate 10 mg tablet 10 mg PO DAILY 09/06/24 09/06/24 History fluticasone propionate 50 1 spray intranasal DAILY PRN 09/06/24 09/06/24 History mcg/actuation nasal Congestion spray,suspension olmesartan 20 mg tablet 10 mg PO DAILY 09/06/24 09/06/24 History triamcinolone acetonide 0.5 % 1 applic topical DIRECTED PRN 09/06/24 09/06/24 History topical cream Skin Irritation Lactobacillus acidophilus 10 100 mmu cells (0.01 x 10 billion 09/09/24 Rx billion cell capsule (Probiotic) cell) PO DAILY #14 caps amoxicillin 875 mg-potassium 1 tab PO BID #15 tabs 09/09/24 Rx clavulanate 125 mg tablet cyanocobalamin (vitamin B-12) 1,000 mcg PO DAILY #30 caps 09/09/24 Rx 1,000 mcg capsule ferrous sulfate 325 mg (65 mg 325 mg PO DAILY #30 tabs 09/09/24 Rx iron) tablet folic acid 1 mg tablet 1 mg PO DAILY #30 tabs 09/09/24 Rx Hospital Stay Data Consultations 09/06/24 23:23 ED Decision to Admit Stat 09/06/24 23:45 Consult General Surgery Routine Diagnostic Imagining Performed Abdomen/Pelvis CT 09/06/24 20:18 Exam(s): CT ABDOMEN + PELVIS With Contrast IV Amt: 115 ml optiray 320 EXAM: CT Abdomen and Pelvis With Intravenous Contrast CLINICAL HISTORY: Reason for exam: possible buttock abscess vs pilonidal. TECHNIQUE: Axial computed tomography images of the abdomen and pelvis with intravenous contrast. CTDI is 28.14 mGy and DLP is 1739.04 mGy-cm. Automated exposure control was utilized for the study. A dose lowering technique was utilized adhering to the principles of ALARA. CONTRAST: Patient received 115 ml optiray 320 of IV contrast COMPARISON: No relevant prior studies available. FINDINGS: Lung bases: Unremarkable. No mass. No consolidation. ABDOMEN: Liver: Unremarkable. No mass. Gallbladder and bile ducts: Unremarkable. No calcified stones. No ductal dilation. Pancreas: Unremarkable. No mass. No ductal dilation. Spleen: Unremarkable. No splenomegaly. Adrenals: Unremarkable. No mass. Kidneys and ureters: Unremarkable. No solid mass. No hydronephrosis. Stomach and bowel: Unremarkable. No obstruction. No mucosal thickening. PELVIS: Appendix: No findings to suggest acute appendicitis. Bladder: Unremarkable. No mass. Reproductive: Fibroid uterus. ABDOMEN and PELVIS: Intraperitoneal space: Unremarkable. No free air. No significant fluid collection. Bones/joints: No acute fracture. No dislocation. Soft tissues: 2.6 x 4.8 cm left perianal abscess. Vasculature: Unremarkable. No abdominal aortic aneurysm. Lymph nodes: Unremarkable. No enlarged lymph nodes. IMPRESSION: 2.6 x 4.8 cm left perianal abscess Fibroid uterus Electronically signed by: Rory Lilly MD 09/06/24 22:42 PM Chest X-Ray 09/06/24 20:18 Exam(s): XR CXR 1 VIEW EXAM: XR Chest, 1 View CLINICAL HISTORY: Reason for exam: Sepsis. TECHNIQUE: Frontal view of the chest. COMPARISON: No relevant prior studies available. FINDINGS: Lungs: Unremarkable. No consolidation. Pleural space: Unremarkable. No pneumothorax. Heart: Unremarkable. No cardiomegaly. Mediastinum: Unremarkable. Normal mediastinal contour. Bones/joints: Unremarkable. No acute fracture. IMPRESSION: Normal chest x-ray. Electronically signed by: Rory Lilly MD 09/06/24 21:38 PM Pending Results Patient Have Any Pending Studies at Discharge: Yes Discharge Instructions Given to Patient (Per Discharging Provider) You presented to the hospital with dizziness and drainage from the perineal region. You were found to have a perianal abscess. We consulted with our Surgery team who recommended conservative measures with pain medicine, nausea medicine, and IV antibiotics. Your symptoms improved and you feel ready to go home. Surgery recommends switching to oral antibiotics and would like to follow up with you in their office in 1-2 weeks. You were found to be anemic with your hemoglobin dropping as low as 6.3. You received a blood transfusion for this. Your stool was negative for blood. We recommend starting folate, vitamin B12, and iron supplementation. We recommend you get these levels checked via blood work in about 3 months. Your blood pressure was on the lower side while in the hospital. We have not been giving your olmesartan or chlorthalidone. We recommend you continue to hold these medications until you follow up with your PCP where they can check your blood pressure. Your potassium level was found to be low while you were in the hospital. We recommend eating foods high in potassium such as bananas, cantaloupe, dried apricots, spinach, potatoes, sweet potatoes, lentils, and kidney beans. You may need a potassium supplement if your levels continue to be low. MEDICATION CHANGES: Augmentin 875mg by mouth twice daily starting tonight until 09/16/2024 (last dose in the evening) - take with food to prevent stomach upset Folate 1mg by mouth daily Vitamin B12 1000mcg by mouth daily Iron (ferrous sulfate) 325mg by mouth daily - take with a stool softener (Colace) as needed for constipation SUMMARY OF TEST RESULTS: Abdomen CT revealed a left perianal abscess and fibroid uterus Chest x-ray normal PENDING TEST RESULTS: Blood cultures - preliminary results are negative after 48 hours RECOMMENDATIONS FOR FOLLOW-UP: Please follow up with your PCP as scheduled on 09/12/2024 at 1:40pm Please follow up with Surgery in 1-2 weeks - if you don't hear from them please call their office at [phone] OTHER INSTRUCTIONS: Seek medical attention if you have: * temperature above 101 * chest pain or trouble breathing * abdominal pain, nausea, vomiting * diarrhea, dark stools or bloody stools * any unanswered questions or concerns Call 911 if symptoms are severe. It has been a pleasure taking care of you. Please take care of yourself. If you have any questions regarding your recent hospitalization please contact [facility] and request Eleanor Still @ [phone]. Total Time Total Time Spent Total Time Spent (In Minutes): I spent a total of 35 minutes coordinating, documenting and providing care for this patient excluding time spent in the performance of separately billed services or time spent by another provider/QHP. Supervising Physician Co-Signing Physician Notes Patient was seen and examined at bedside as a follow-up of perianal abscess. General surgery on board. Continue with IV Zosyn + vanc. Blood culture pending . no growth 48 hr. to augmentin on dc to complete 10 days therapy and f/u with gen sx in 1 week. Patient also noted to have symptomatic iron deficiency anemia, declines using any iron supplement as an outpatient due to constipation issues. Baseline hemoglobin is pretty low around 9 and patient denies any blood in the stool or black stool. Admitting Hb 7.3, f/u Hb is 6.3 , s/p 2 unit PRBC, Hb around 7.5 now, stable. Patient reports getting colonoscopy about a year ago and recalls no abnormal pathology/being told the need for next C-scope in 5 years. Pt advised to utilize OTC laxatives/stool softeners to help mitigate constipation effect of iron pills, if not she could coordinate w/ her PCP office for iv iron. She has been educated on this. currently due to active infection will not do iv iron. pt is started on iron/b12/folate supplementation on dc. Avoid NSAIDs, FOBT neg. Pt reports very occasionally using NSAIDs for headache. Pt denies epigastric pain or burning sensation. c/w home BP meds w/ caution, agree w/ holding ACEi and Chlorthalidone for now. BP low normal. f/u w/ pcp closely and likely resume as OP in next 3-4 days. total time spent independently: 18 minutes. I have seen and examined the patient and have discussed the case with the provider above. I agree with the assessment and plan as stated.
[2024-09-09 15:41] VITALS: PULSE 85
== END 2024-09-09 16:22 | disposition home or self-care (01) | DRG 872 ==
LOC: ED 19:29 → 2N 09-07 02:10 → SUATTDRO 09-07 02:10 → 2N 09-07 04:06